=== PATIENT | female | born 1950 | race Caucasian/White ===

== ENCOUNTER 2019-07-13 06:46 | Emergency (ER) | payer MEDICARE, OTHER, SELFPAY ==
--- NOTE | ~2019-07-13 | XR_ITS ---
XR knee LT 3V DATE: 07/13/2019 07:49 INDICATION: Fall. Left knee injury and pain at patellar area of TECHNIQUE: AP, lateral, sunrise views COMPARISON: None FINDINGS: No fracture or dislocation or joint effusion. No periosteal reaction or bone destruction. S uperior pole patellar enthesopathy at quadriceps tendon insertion. There is mild loss of height of medial compartment joint space. No radiopaque intra-articular loose b aliya or chondrocalcinosis. IMPRESSION: No fracture or dislocation or joint effusion Reviewed, dictated and finalized at location A. [facility]DER [facility] [employer]
[2019-07-13 06:50] VITALS: BP 127/75; PULSE 68; RESP 18; TEMP 36.4; O2SAT 95
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
--- NOTE | 2019-07-13 07:32 | PC.NURSE ---
assuming care of pt from Gabriela PETERSON. Pt is A&Ox4. Pt laying in bed resting. Pt updated on POC. Pt has no questions at this time. Pt has call light in reach
[2019-07-13] MEDS: KETOROLAC 30 MG/ML VIAL (*BKC) IM (08:06)
== END 2019-07-13 08:42 | disposition home or self-care (01) ==
PROVIDERS: Emergency Provider Emergency Medicine
DX: S80.02XA Contusion of left knee, initial encounter (principal); F17.210 Nicotine dependence, cigarettes, uncomplicated; W19.XXXA Unspecified fall, initial encounter
CPT/HCPCS: 73562; 96372; 99283; J1885

== ENCOUNTER 2019-09-21 05:10 | Observation (INO) | payer MEDICARE, OTHER, SELFPAY ==
[2019-09-21] VITALS (12 sets, daily range): BP systolic 102–123; BP diastolic 48–76; PULSE 51–84; RESP 16–19; TEMP 36.4–36.9; O2SAT 91–100; BMI 30.9
--- NOTE | ~2019-09-21 | US_ITS ---
EXAMINATION: US right upper quadrant DATE: 09/21/2019 07:36 INDICATION: Epigastric abdominal pain. TECHNIQUE: Multiple grayscale and Doppler ultrasound images of the abdomen were obtained. COMPARISON: None FINDINGS: The visualized portions of the head and body of the pancreas are normal. The liver is april l without focal lesion. There is normal flow in main portal vein. The gallbladder is normal in size a nd contains gallstones. No gallbladder wall thickening or sonographic Styles sign. The common duct is normal and measures 4 mm. There is a 1.4 cm cyst in right kidney. IMPRESSION: 1. Cholelithiasis. No evidence of acute cholecystitis. Reviewed, dictated and finalized at location A.
--- NOTE | ~2019-09-21 | XR_ITS ---
EXAMINATION: XR chest 2V DATE: 09/21/2019 06:08 INDICATION: Midline chest pain. TECHNIQUE: Frontal and lateral views of the chest were obtained. COMPARISON: Chest 2 views 06/19/2019 FINDINGS: There is mild scarring at the lung apices. There are mild airspace opacities in right lower lung zone and left mid lung zone. No pleural effusion or pneumothorax. The heart size is normal. IMPRESSION: 1. Unchanged mild airspace opacities in right lower lung zone and left midlung zone, likely chronic l ling disease. Reviewed, dictated and finalized at location A. IMPRESSION: 1. Unchanged mild airspace opacities in right lower lung zone and left midlung zone, likely chronic lung disease.
--- NOTE | ~2019-09-21 | NM_ITS ---
EXAMINATION: NM surya stress w perfusion DATE: 09/21/2019 16:08 CDT INDICATION: Atypical chest pain TECHNIQUE: Rest images were obtained following intravenous administration of 9.6 mCi Tc99m tetrofosmi n (Myoview). The patient was infused intravenously with Lexiscan (regadenoson). Then, 30.9 mCi Tc99m tetrofosmin (Myoview) was administered intravenously, and stress images were obtained. Data was recon structed into short axis and horizontal and vertical long axis SPECT images. Gated SPECT images were also obtained. COMPARISON: No prior studies for comparison. FINDINGS: There is no definite reversible or fixed perfusion abnormality to suggest ischemia or infar ction. There is no segmental wall motion abnormality. Left ventricular ejection fraction measures 6 4%. IMPRESSION: 1. No definite ischemia or infarct. 2. Normal left ventricular ejection fraction measuring 64%. Reviewed, dictated and finalized at location A.
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
--- NOTE | 2019-09-21 05:37 | ECG_ITS ---
Measurements Intervals [place] Rate: 61 P: -6 DC: 122 QRS: 55 QRSD: 129 T: 195 QT: 437 QTc: 441 Interpretive Statements SINUS RHYTHM RIGHT BUNDLE BRANCH BLOCK T WAVE ABNORMALITY IN DIFFUSE LEADS- CONSIDER ISHEMIA BASELINE ARTIFACT- I, II, III, AVR, AVL, AVF, V1-V2 ABNORMAL ECG Electronically Signed On 09-21-2019 7:16:49 CDT by Roberto Clayton D.O.
[2019-09-21 05:41] LABS: Basophils Percent Auto 0.4 % (0.2-1.2); Eosinophils Absolute Auto 0.2 K/mm3 (0-0.3); Eosinophils Percent Auto 1.4 % (0-4.4); Hematocrit 45.6 % (37.0-47.0); Hemoglobin 14.4 g/dL (12.0-15.0); Immature Granulocyte Absolute 0.04 K/mm3 (0.00-0.031); Immature Granulocyte Percent A 0.4 % (0-0.5); Lymphocytes Absolute Auto 2.59 K/mm3 (0.9-3.2); Lymphocytes Percent Auto 23.9 % (18.3-44.2); Mean Corpuscular HGB Conc 31.6 g/dl (32-36); Mean Corpuscular Hemoglobin 27.7 pg (26-34); Mean Corpuscular Volume 87.9 fl (80-100); Mean Platelet Volume 10.4 fl (7.4-10.4); Monocytes Absolute Auto 0.9 K/mm3 (0.1-0.6); Monocytes Percent Auto 8.4 % (2.6-8.5); Neutrophils Absolute Auto 7.1 K/mm3 (1.3-6.7); Neutrophils Percent Auto 65.5 % (45.5-73.1); Platelet Count Result 223 k/mm3 (150-375); Red Blood Count 5.19 M/mm3 (4.2-5.4); Red Cell Distribution Width 14.6 % (11.5-14.5); White Blood Count 10.9 K/mm3 (4.5-10.0)
[2019-09-21 05:53] LABS: Alanine Aminotransferase 26 U/L (4-35); Albumin Level 3.3 g/dL (3.5-5.1); Alkaline Phosphatase 124 U/L (38-126); Aspartate Amino Transferase 21 U/L (14-36); Bilirubin,Total 0.6 mg/dL (0.2-1.3); Blood Urea Nitrogen 38 mg/dL (7-17); Carbon Dioxide 28 mmol/L (22-30); Chloride 106 mmol/L (98-107); Estimated CRCL calculation 45 ml/min; Estimated Glomerular Filt Rate 49; Glucose 119 mg/dL (65-105); Lipase 126 U/L (23-300); Sodium 139 mmol/L (137-145)
[2019-09-21 05:58] LABS: Add Urine Microscopic? YES; Appearance Urine Clear (Clear); Bilirubin Urine Negative (Negative); Blood Urine Negative (Negative); Color Urine Yellow (Yellow); Glucose Urine UA 3+ mg/dL (Negative); Ketones Urine Negative (Negative); Leukocyte Esterase Ur Negative LEU/UL (Negative); Nitrate Urine Negative (Negative); Protein Urine Negative (Negative); RBC Urine 0-2 /hpf (0-2); Specific Grav Ur 1.015 (1.001-1.035); Squamous Epithelial Cell Urine Rare /hpf (Few); Urobilinogen Urine Negative mg/dL (<2.0); WBC Urine 0-3 /hpf
[2019-09-21 06:05] LABS: Troponin I 0.019 ng/mL (0.000-0.034)
[2019-09-21 08:48] LABS: Troponin I 0.021 ng/mL (0.000-0.034)
--- NOTE | 2019-09-21 09:25 | ADMGEN ---
This patient, Flory Peters, was admitted to IMU Room 203-01 at 920. Patient/family oriented to hospital policies and general routines including ID bracelet, bed and alarms, visiting hours, pain management, procedures, bathroom and other care routines, personal items, smoking policy, room service/diet, and visiting hours. Valuables list has been completed. Information on how to activate the Rapid Response Team has been discussed. Patient/Family are encouraged to report perceived risks to care and to ask questions if they do not understand what they are told or what they should do.
[2019-09-21] MEDS: FAMOTIDINE 20 MG/2 ML VIAL IV PUSH (10:24)
[2019-09-21 11:47] LABS: Troponin I 0.017 ng/mL (0.000-0.034)
--- NOTE | 2019-09-21 12:31 | EST_ITS ---
Patient Info Name: Flory Peters Age: 69 years : 1950 Gender: Female Ht: 64 in Wt: 180 lbs BSA: 1.95 m2 Exam Date: 09/21/2019 2:36 PM Exam Location: [facility] Stress Patient Status: Inpatient Admit Date: 09/21/2019 Staff Ordering Physician: Dmitriy Baires MD Attending Provider: Himanshu Tirado MD Exercise Technologist: Jesse Styles RDCS, RT Exercise Physician: Dmitriy Baires MD Exam Type: CA stress surya w NM Study Info A regadenoson stress test was performed. Summary 1. Indication for the stress test, chest pain. 2. Lexiscan nuclear stress test with no evidence of ischemia on EKG portion of test. Please correlate with nuclear medicine images, reported separately. 3. No chest discomfort with stress test. Protocol: Lexiscan Stress ECG Details Stage: REST Duration (min): 1 min : 4 sec HR (bpm): 54 SBP (mmHg): 127 DBP (mmHg): 68 Stage: REST Duration (min): 3 min : 55 sec HR (bpm): 55 SBP (mmHg): 127 DBP (mmHg): 68 Stage: STAGE 1 Duration (min): 1 min : 0 sec HR (bpm): 58 SBP (mmHg): 131 DBP (mmHg): 63 Stage: RECOVERY Duration (min): 1 min : 0 sec HR (bpm): 66 SBP (mmHg): 131 DBP (mmHg): 63 Stage: RECOVERY Duration (min): 2 min : 0 sec HR (bpm): 66 SBP (mmHg): 131 DBP (mmHg): 63 Stage: RECOVERY Duration (min): 3 min : 0 sec HR (bpm): 67 SBP (mmHg): 143 DBP (mmHg): 60 Stage: RECOVERY Duration (min): 4 min : 0 sec HR (bpm): 66 SBP (mmHg): 143 DBP (mmHg): 60 Stage: RECOVERY Duration (min): 5 min : 0 sec HR (bpm): 65 SBP (mmHg): 129 DBP (mmHg): 62 Stage: RECOVERY Duration (min): 6 min : 0 sec HR (bpm): 65 SBP (mmHg): 129 DBP (mmHg): 62 Stage: RECOVERY Duration (min): 6 min : 22 sec HR (bpm): 64 SBP (mmHg): 129 DBP (mmHg): 62 Rest HR: 55 bpm Peak HR: 74 bpm Rest Sys BP: 127 mmHg Peak Sys BP: 143 mmHg Max Pred HR: 151 bpm % Max Pred HR: 49 % Target HR: 128 bpm Max RPP: 10,582 bpm*mmHg BP Response: Normal blood pressure response Termination Reason: Completed protocol Cardiac Symptoms: Dyspnea Total Time: 1 min : 0 sec Rest Martin BP: 68 mmHg Peak Martin BP: 60 mmHg Total Dose: 0.4 mg Resting ECG Normal sinus rhythm. Resting ST/T wave changes. Stress ECG No abnormal ST/T wave changes with exercise. Arrhythmias Occasional PACs. Report Signatures
[2019-09-21] MEDS: INSULIN GLARGINE (*BKC) 100 UNITS/ML 40 UNITS SUB-Q (12:32)
[2019-09-21] MEDS: ROSUVASTATIN 10 MG TABLET 20 MG PO (12:32)
[2019-09-21] MEDS: PRAMIPEXOLE 1 MG TABLET PO ×2 (12:32→16:41)
[2019-09-21] MEDS: INSULIN ASPART (*BKC) 100 UNITS/ML 30 UNITS SUB-Q (12:32)
--- NOTE | 2019-09-21 12:32 | ECHO_ITS ---
Patient Info Name: Flory Peters Age: 69 years : 1950 Gender: Female Ht: 64 in Wt: 180 lbs BSA: 1.95 m2 HR: 60 bpm BP: 122 / 48 mmHg Heart Rhythm: Sinus Rhythm Technical Quality: Good Exam Date: 09/21/2019 1:22 PM Exam Location: [facility] Pulmonary Patient Status: Inpatient Admit Date: 09/21/2019 Staff Ordering Physician: Dmitriy Baires MD Paper Sheeter: Maggi Johnson RDCS Attending Provider: Himanshu Tirado MD Referring Physician: Viry GUAJARDO; Exam Type: CA echo doppler color flow Study Info Indications R07.89 - Other chest pain Complete two-dimensional, color flow and Doppler transthoracic echocardiogram is performed. Summary 1. Left ventricular chamber dimension is normal. 2. Apical hypertrophy with spade-shaped left ventricular chamber noted, consistent with apical hypertrophic cardiomyopathy. Recommend eventual additional views to assess for possible mid-ventricular cavity gradient. 3. Left ventricular systolic function is hyperdynamic, estimated at 65-70%. 4. Mild lipomatous hypertrophy of the atrial septum. 5. Mild pulmonary hypertension, estimated pulmonary arterial systolic pressure is 46 mmHg. 6. Technically difficult study with limited views. Left Ventricle Apical hypertrophy with spade-shaped left ventricular chamber noted, consistent with apical hypertrophic cardiomyopathy. Recommend eventual additional views to assess for possible mid-ventricular cavity gradient. Left ventricular chamber dimension is normal. Left ventricular systolic function is hyperdynamic, estimated at 65-70%. The left ventricular diastolic function is indeterminate. Right Ventricle Right ventricular chamber dimension is normal. Right ventricular systolic function is normal. Left Atria Left atrial chamber dimension is mildly enlarged. Right Atria Right atrial chamber dimension is normal. Atrial Septum Mild lipomatous hypertrophy of the atrial septum. Aortic Valve The aortic valve is trileaflet. There is mild aortic valve sclerosis. There is no aortic valve stenosis. There is no aortic valve regurgitation. Pulmonic Valve The pulmonic valve is not well visualized. There is no pulmonic valve stenosis. There is trace pulmonic regurgitation. Mitral Valve The mitral valve has normal leaflets. There is no mitral valve stenosis. There is mild mitral valve regurgitation. Tricuspid Valve The tricuspid valve leaflets are not well visualized. There is no significant tricuspid valve stenosis. There is mild tricuspid valve regurgitation. Mild pulmonary hypertension, estimated pulmonary arterial systolic pressure is 46 mmHg. Pericardium/Pleural The pericardium appears normal. There is no pericardial effusion. Inferior Vena Cava Normal inferior vena cava with >50% collapse upon inspiration consistent with normal right atrial pressure, 3 mmHg. Aorta The aortic root size at the sinus of Valsalva is normal. The prox ascending aorta size is normal. Left Ventricular Outflow Tract Name Value Normal LVOT 2D LVOT Diameter 1.9 cm LVOT Doppler LVOT Peak Gradient 10 mmHg
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
--- NOTE | 2019-09-21 12:35 | PM.CNCAR ---
Assessment and Plan Assessment and plan (1) Atypical chest pain: Code(s): R07.89 - Other chest pain Status: Acute Assessment and Plan: Patient is 69-year-old white woman with history of hypertension, hyperlipidemia, diabetes mellitus, active tobacco dependence (for 40 years, currently 1/2 pack per day but previously 2 packs per day), lung cancer ( status post right-sided lobectomy approximately 2018, status post 5 rounds of radiation therapy ending 1 year ago, with negative chest CT [address] [facility]), COPD, osteoarthritis status post right hip replacement (several years ago), seizure disorder, anxiety, who was seen in cardiac consultation for chief complaint of chest pain. - chest pain is atypical (sharp, stabbing, lower central chest and epigastric, radiating to right lateral chest, worse after eating sausages and laying down). Chest pain currently resolved. - Serial troponin I negative for injury. - EKG without evidence of acute injury. - Given her multiple cardiac risk factors including active tobacco dependence and diabetes mellitus, will proceed with Lexiscan nuclear stress test to evaluate for ischemia. - obtain echo to evaluate cardiac structure and function. - she received aspirin earlier in her presentation, and will continue pending stress test results. - per her report, she needs a new senior information security analyst as her prior senior information security analyst at [employer] is retiring. - tobacco cessation strongly encouraged. (2) Hypertension: Code(s): I10 - Essential (primary) hypertension Status: Chronic Assessment and Plan: - Blood pressure well controlled this admission. - continue to monitor - Anticipate resuming her triamterene hydrochlorothiazide. (3) Hyperlipidemia: Code(s): E78.5 - Hyperlipidemia, unspecified Status: Chronic Assessment and Plan: -Continue rosuvastatin as per outpatient regimen. -obtain fasting lipid panel. She reports good recent control of her cholesterol as an outpatient. (4) Cholelithiasis: Code(s): K80.20 - Calculus of gallbladder without cholecystitis without obstruction Status: Acute Assessment and Plan: - Right upper quadrant ultrasound with evidence of cholelithiasis but without cholecystitis. - She had atypical lower central chest and epigastric discomfort with radiation to the right lateral chest after eating sausages. - Management as per primary service. (5) Diabetes: Code(s): E11.9 - Type 2 diabetes mellitus without complications Status: Chronic Assessment and Plan: - she has a history of poorly controlled diabetes mellitus. - management as per primary service. (6) COPD (chronic obstructive pulmonary disease): Code(s): J44.9 - Chronic obstructive pulmonary disease, unspecified Status: Chronic Assessment and Plan: - Smoking cessation strongly recommended. - management as per primary service. History of Present Illness History of Present Illness Consult date/time: 09/21/19 12:35 Patient is 69-year-old white woman with history of hypertension, hyperlipidemia, diabetes mellitus, active tobacco dependence (for 40 years, currently 1/2 pack per day but previously 2 packs per day), lung cancer ( status post right-sided lobectomy approximately 2018, status post 5 rounds of radiation therapy ending 1 year ago, with negative chest CT [address] [facility]), COPD, osteoarthritis status post right hip replacement (several years ago), seizure disorder, anxiety, who was seen in cardiac consultation for chief complaint of chest pain. Patient reports intermittent chest pain since her lung cancer surgery with right-sided lobectomy in 2018. She reports approximately every 6 month she will have an episode of exertional chest pain which would extend to her left arm. She reports she has not had such chest pain for at least 6 months but then on the evening of the day of presentation she made pigs in the joni
[2019-09-21 13:16] LABS: Glucose Point of Care 305 (65-105)
[2019-09-21 14:41] LABS: Glucose Point of Care 297 (65-105)
[2019-09-21 14:41] LABS: Glucose Point of Care 153 (65-105)
[2019-09-21] MEDS: ALPRAZOLAM 0.5 MG TABLET 2 MG PO (16:41)
[2019-09-21] MEDS: METOPROLOL SUCCINATE EXT REL 25 MG TABCR PO (17:21)
[2019-09-21 18:29] LABS: Glucose Point of Care 97 (65-105)
--- NOTE | 2019-09-21 18:34 | PM.DS ---
DS: Diagnosis Admitting Diagnosis Admitting Diagnosis: Other chest pain Discharge Diagnosis (1) Atypical chest pain: Code(s): R07.89 - Other chest pain Status: Acute Assessment and Plan: Chest pain atypical infected occurs at rest but she does have risk factors angry with Cardiology in proceeding with nuclear stress test. Which was negative for ischemia. Echo revealed possible hypertrophic cardiomyopathy and will follow-up with cardiology on beta-ilana Toprol XL 25 daily Could very well be related to symptomatic cholelithiasis. (2) Hypertension: Code(s): I10 - Essential (primary) hypertension Status: Chronic Assessment and Plan: Well controlled and beta-ilana will be substituted for her diuretic (3) Diabetes: Code(s): E11.9 - Type 2 diabetes mellitus without complications Status: Chronic Assessment and Plan: FBS 119 this morning but over 200 before lunch. Will give her 2 surgery usual Lantus dose and she did not get it this morning and continue short-acting insulin a.c. along with sliding scale She does relate that a hemoglobin A1c was greater than 11 some 4 months ago No change in her diabetic insulin regime here and will follow the same at home (4) COPD (chronic obstructive pulmonary disease): Code(s): J44.9 - Chronic obstructive pulmonary disease, unspecified Status: Chronic Assessment and Plan: Not active problem. Does continue to smoke (5) Cholelithiasis: Code(s): K80.20 - Calculus of gallbladder without cholecystitis without obstruction Status: Acute Assessment and Plan: Sono today revealed the stones with no gallbladder wall thickening or rosita colic fluid. There have been no previous episodes so not unusual to not find any gallbladder wall thickening and patient encouraged to follow-up with primary care for probable surgical referral DS: Summary Hospital Course Hospital Course: 69-year-old white female diabetic with hypertension since is smokes admitted with chest pressure was radiating to her scapula about 4 hours after eating some fried foods. Troponins were negative and EKG had chronic nonspecific ST T wave changes with incomplete right bundle branch block. Seen by Cardiology and Lexiscan showed no evidence ischemia with normal ejection fraction.. Echo revealed thickened myocardium and possible hypertrophic cardiomyopathy so patient was placed on metoprolol GB sonogram showed cholelithiasis without evidence of cholecystitis and patient was encouraged to follow up with her primary and possible have surgical referral Time Spent with Patient Time attestation: Total time spent providing and/or coordinating discharge services: 35 minutes Exam Narrative: Exam Narrative: Condition on discharge Blood pressure 124/52 pulse 72 and regular Lungs clear CV regular rate rhythm no murmurs or gallops Abdomen is soft minimal discomfort right upper quadrant Extremities without edema good distal pulses Neuro alert pleasant cooperative no focal deficits DS: Data Data Completed and Pending Labs on day of discharge: Labs from last 24 hours 09/21/19 09/21/19 09/21/19 16:10 12:38 11:32 WBC RBC Hgb Hct MCV MCH MCHC RDW Plt Count MPV Immature Gran % (Auto) Neut % (Auto) Lymph % (Auto) [place] % (Auto) Eos % (Auto) Baso % (Auto) Lymph # (Auto) [place] # (Auto) Eos # (Auto) Baso # (Auto) Abs Immat Gran (auto) Absolute Neuts (auto) Absolute Nucleated RBC Nucleated RBC % Sodium Potassium Chloride Carbon Dioxide BUN Creatinine Estim Creat Clear Calc Estimated GFR Glucose POC Capillary Glucose 97 305 H 297 H Calcium Total Bilirubin AST ALT Alkaline Phosphatase Troponin I Total Protein Albumin Lipase Urine Color Urine Appearance Urine pH Ur Specific [place] Urine Protein
== END 2019-09-21 18:30 | disposition home or self-care (01) ==
LOC: ANHED 08:29 → ANHIMU 08:59
PROVIDERS: Emergency Medicine; Admitting Provider Internal Medicine; Emergency Provider Internal Medicine; Visit Provider Internal Medicine
DX: R07.89 Other chest pain (principal); I10 Essential (primary) hypertension; E11.9 Type 2 diabetes mellitus without complications; J44.9 Chronic obstructive pulmonary disease, unspecified; K80.20 Calculus of gallbladder without cholecystitis without obstruction; E78.5 Hyperlipidemia, unspecified; F17.210 Nicotine dependence, cigarettes, uncomplicated; G40.909 Epilepsy, unspecified, not intractable, without status epilepticus; F41.9 Anxiety disorder, unspecified; Z79.4 Long term (current) use of insulin; Z79.899 Other long term (current) drug therapy; Z85.118 Personal history of other malignant neoplasm of bronchus and lung; Z90.2 Acquired absence of lung [part of]; Z92.3 Personal history of irradiation; Z96.641 Presence of right artificial hip joint
CPT/HCPCS: 36415; 71046; 76705; 78452; 80053; 81001; 83690; 84484; 85025; 93005; 93017; 93306; 96374; 99285; A9270; A9502; G0378; J1815; J2785

== ENCOUNTER 2019-11-09 11:33 | Emergency (ER) | payer MEDICARE, OTHER, SELFPAY ==
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
[2019-11-09 12:04] VITALS: BP 121/73; PULSE 64; RESP 16; TEMP 37.1; O2SAT 96
== END 2019-11-09 12:27 | disposition home or self-care (01) ==
PROVIDERS: Emergency Provider Nurse Practitioner; PCP Internal Medicine Endocrinology, Diabetes & Metabolism
DX: H00.015 Hordeolum externum left lower eyelid (principal); J44.9 Chronic obstructive pulmonary disease, unspecified; F41.9 Anxiety disorder, unspecified; E78.5 Hyperlipidemia, unspecified; I10 Essential (primary) hypertension; E11.9 Type 2 diabetes mellitus without complications; I42.9 Cardiomyopathy, unspecified; M16.11 Unilateral primary osteoarthritis, right hip; Z85.118 Personal history of other malignant neoplasm of bronchus and lung; Z90.2 Acquired absence of lung [part of]; F17.210 Nicotine dependence, cigarettes, uncomplicated; Z79.4 Long term (current) use of insulin
CPT/HCPCS: 99213; G0463

== ENCOUNTER 2019-11-14 01:32 | Emergency (ER) | payer MEDICARE, OTHER, SELFPAY ==
--- NOTE | ~2019-11-14 | XR_ITS ---
EXAMINATION: XR chest 1V portable DATE: 11/14/2019 03:53 INDICATION: Heart disease. TECHNIQUE: A single frontal view of the chest was obtained. COMPARISON: Chest 2 views 09/21/2019 FINDINGS: Again seen is mild scarring at right lower lung zone and left midlung zone. No pleural effu verito or pneumothorax. The heart size is normal. There is a prominent left paracardial fat pad. IMPRESSION: 1. Mild scarring in right lower lung zone and left midlung zone. Reviewed, dictated and finalized at location A.
[2019-11-14 01:32] VITALS: BP 161/99; PULSE 87; RESP 22; TEMP 36.7; O2SAT 94
[2019-11-14 02:34] VITALS: BP 147/61; PULSE 88; RESP 19; O2SAT 93
--- NOTE | 2019-11-14 03:42 | ECG_ITS ---
Measurements Intervals Lane Rate: 71 P: 59 MO: 139 QRS: 55 QRSD: 132 T: -49 QT: 385 QTc: 418 Interpretive Statements SINUS RHYTHM ATRIAL TRIPLET RIGHT BUNDLE BRANCH BLOCK VOLTAGE CRITERIA FOR LVH T WAVE ABNORMALITY IN ANTEROLATERAL LEADS- CONSIDER ISCHEMIA BASELINE ARTIFACT- AVF ABNORMAL ECG Electronically Signed On 11-14-2019 6:47:45 CDT by Roberto Clayton D.O.
[2019-11-14 03:59] LABS: Basophils Percent Auto 0.3 % (0.2-1.2); Eosinophils Absolute Auto 0.1 K/mm3 (0-0.3); Eosinophils Percent Auto 1.4 % (0-4.4); Hematocrit 46.9 % (37.0-47.0); Hemoglobin 14.9 g/dL (12.0-15.0); Immature Granulocyte Absolute 0.02 K/mm3 (0.00-0.031); Immature Granulocyte Percent A 0.2 % (0-0.5); Lymphocytes Absolute Auto 2.88 K/mm3 (0.9-3.2); Lymphocytes Percent Auto 31.1 % (18.3-44.2); Mean Corpuscular HGB Conc 31.8 g/dl (32-36); Mean Corpuscular Hemoglobin 28.4 pg (26-34); Mean Corpuscular Volume 89.5 fl (80-100); Monocytes Absolute Auto 0.6 K/mm3 (0.1-0.6); Monocytes Percent Auto 6.5 % (2.6-8.5); Neutrophils Absolute Auto 5.6 K/mm3 (1.3-6.7); Neutrophils Percent Auto 60.5 % (45.5-73.1); Platelet Count Result 198 k/mm3 (150-375); Red Blood Count 5.24 M/mm3 (4.2-5.4); Red Cell Distribution Width 14.6 % (11.5-14.5); White Blood Count 9.3 K/mm3 (4.5-10.0)
[2019-11-14 04:04] LABS: Alveolar/Arterial O2 Gradient 33.7 mmHg; Base Excess ABG 3.5 mEq/l (+/-2.0); Carboxyhemoglobin 4.2 % THb (0-2.0); Fractional Inspired Oxygen 21 %; HCO3 ABG 29.3 mEq/l (22.0-26.0); Methemoglobin ABG 0.3 %THb (0-1.5); Modified Allen's Test Pass; Oxygen Content ABG 18.4 %vol (16.0-22.0); Oxygen Saturation ABG 89.7 % (95.0-100.0); Oxyhemoglobin 85.5 % THb (90.0-100.0); PCO2 ABG 48.6 mmHg (35.0-45.0); PO2 ABG 57.8 mmHg (80.0-100.0); PO2 FiO2 Ratio Arterial Blood 2.75 %; Site Drawn LEFT RADIAL; Total Hemoglobin 15.3 g/dL (12.0-18.0); pH ABG 7.398 (7.350-7.450)
[2019-11-14 04:05] LABS: Device ROOM AIR
[2019-11-14 04:08] LABS: INR 0.9; Prothrombin Time 11.9 Seconds (11.1-14.7)
[2019-11-14 04:09] VITALS: BP 148/78; PULSE 92; RESP 19; O2SAT 92
[2019-11-14 04:09] LABS: Partial Thromboplastin Time 24.3 SECONDS (22.3-36.8)
[2019-11-14 04:10] LABS: Alanine Aminotransferase 23 U/L (4-35); Albumin Level 3.3 g/dL (3.5-5.1); Alkaline Phosphatase 120 U/L (38-126); Aspartate Amino Transferase 26 U/L (14-36); Bilirubin,Total 0.5 mg/dL (0.2-1.3); Blood Urea Nitrogen 34 mg/dL (7-17); Calcium 9.4 mg/dL (8.4-10.2); Carbon Dioxide 33 mmol/L (22-30); Chloride 101 mmol/L (98-107); Creatine Kinase 83 U/L (30-135); Estimated CRCL calculation 45 ml/min; Estimated Glomerular Filt Rate 49; Glucose 203 mg/dL (65-105); Potassium 4.2 mmol/L (3.4-5.0); Sodium 137 mmol/L (137-145)
--- NOTE | 2019-11-14 04:10 | PC.NURSE ---
Assumed care of pt at this time. report from NICHOLAS Child
[2019-11-14 04:19] LABS: NT Pro B Type Natriuretic Pept 1030 PG/ML (5-100)
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
[2019-11-14 05:10] VITALS: BP 133/89; PULSE 91; RESP 20; O2SAT 92
== END 2019-11-14 05:10 | disposition home or self-care (01) ==
PROVIDERS: Emergency Provider General Practice; PCP Internal Medicine Endocrinology, Diabetes & Metabolism
DX: R25.2 Cramp and spasm (principal); J44.9 Chronic obstructive pulmonary disease, unspecified; F17.210 Nicotine dependence, cigarettes, uncomplicated; F41.9 Anxiety disorder, unspecified; E11.9 Type 2 diabetes mellitus without complications; Z79.4 Long term (current) use of insulin; E78.5 Hyperlipidemia, unspecified; I10 Essential (primary) hypertension; Z85.118 Personal history of other malignant neoplasm of bronchus and lung; M16.11 Unilateral primary osteoarthritis, right hip; Z90.2 Acquired absence of lung [part of]; Z96.641 Presence of right artificial hip joint; I45.10 Unspecified right bundle-branch block; R94.31 Abnormal electrocardiogram [ECG] [EKG]
CPT/HCPCS: 36415; 36600; 71045; 80053; 82375; 82550; 82805; 83050; 83735; 83880; 85025; 85610; 85730; 93005; 99283

== ENCOUNTER 2019-12-17 16:16 | Emergency (ER) | payer MEDICARE, OTHER, SELFPAY ==
[2019-12-17 16:29] VITALS: BP 155/87; PULSE 99; RESP 16; TEMP 37.3; O2SAT 99
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
== END 2019-12-17 16:55 | disposition home or self-care (01) ==
PROVIDERS: Emergency Provider Nurse Practitioner; PCP Internal Medicine Endocrinology, Diabetes & Metabolism
DX: M25.562 Pain in left knee (principal); G89.29 Other chronic pain; F17.210 Nicotine dependence, cigarettes, uncomplicated; E78.00 Pure hypercholesterolemia, unspecified; I10 Essential (primary) hypertension; J44.9 Chronic obstructive pulmonary disease, unspecified; M19.90 Unspecified osteoarthritis, unspecified site; Z96.641 Presence of right artificial hip joint; E11.9 Type 2 diabetes mellitus without complications; Z79.4 Long term (current) use of insulin; F41.9 Anxiety disorder, unspecified; Z85.118 Personal history of other malignant neoplasm of bronchus and lung; Z92.3 Personal history of irradiation
CPT/HCPCS: 99213; G0463

== ENCOUNTER 2020-01-07 16:09 | Emergency (ER) | payer MEDICARE, OTHER, SELFPAY ==
[2020-01-07 16:12] VITALS: BP 146/94; PULSE 93; RESP 20; TEMP 36.3; O2SAT 95
[2020-01-07 16:29] LABS: Basophils Percent Auto 0.2 % (0.2-1.2); Eosinophils Absolute Auto 0.1 K/mm3 (0-0.3); Hematocrit 45.4 % (37.0-47.0); Hemoglobin 14.7 g/dL (12.0-15.0); Immature Granulocyte Absolute 0.02 K/mm3 (0.00-0.031); Immature Granulocyte Percent A 0.2 % (0-0.5); Lymphocytes Absolute Auto 2.43 K/mm3 (0.9-3.2); Lymphocytes Percent Auto 29.5 % (18.3-44.2); Mean Corpuscular HGB Conc 32.4 g/dl (32-36); Mean Corpuscular Hemoglobin 28.4 pg (26-34); Mean Corpuscular Volume 87.8 fl (80-100); Mean Platelet Volume 10.3 fl (7.4-10.4); Monocytes Absolute Auto 0.5 K/mm3 (0.1-0.6); Monocytes Percent Auto 5.6 % (2.6-8.5); Neutrophils Absolute Auto 5.2 K/mm3 (1.3-6.7); Neutrophils Percent Auto 63.5 % (45.5-73.1); Platelet Count Result 203 k/mm3 (150-375); Red Blood Count 5.17 M/mm3 (4.2-5.4); Red Cell Distribution Width 14.1 % (11.5-14.5); White Blood Count 8.2 K/mm3 (4.5-10.0)
[2020-01-07 16:40] LABS: Alanine Aminotransferase 24 U/L (4-35); Albumin Level 3.4 g/dL (3.5-5.1); Alkaline Phosphatase 109 U/L (38-126); Bilirubin,Total 0.6 mg/dL (0.2-1.3); Blood Urea Nitrogen 29 mg/dL (7-17); Carbon Dioxide 28 mmol/L (22-30); Chloride 102 mmol/L (98-107); Estimated CRCL calculation 45 ml/min; Estimated Glomerular Filt Rate 49; Glucose 388 mg/dL (65-105); Magnesium 1.6 mg/dL (1.6-2.3); Sodium 136 mmol/L (137-145)
[2020-01-07 16:48] LABS: Aspartate Amino Transferase < 3 U/L (14-36)
[2020-01-07 17:49] LABS: Add Urine Microscopic? YES; Appearance Urine Clear (Clear); Bilirubin Urine Negative (Negative); Blood Urine Negative (Negative); Color Urine Straw (Yellow); Glucose Urine UA 3+ mg/dL (Negative); Ketones Urine Negative (Negative); Leukocyte Esterase Ur Trace LEU/UL (Negative); Mucus Urine Rare /lpf; Nitrate Urine Negative (Negative); Protein Urine Negative (Negative); RBC Urine 0-2 /hpf (0-2); Squamous Epithelial Cell Urine Moderate /hpf (Few); Urobilinogen Urine Negative mg/dL (<2.0); WBC Urine 0-3 /hpf
[2020-01-07 17:57] VITALS: BP 142/68; PULSE 73; RESP 18; O2SAT 94
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
[2020-01-07 17:58] VITALS: RESP 94
[2020-01-07] MEDS: INSULIN HUMAN REGULAR (*BKC) 100 UNITS/ML 6 UNITS IV PUSH (18:17)
[2020-01-07] MEDS: SODIUM CHLORIDE 0.9% IV 1,000 ML 999 ML IV CONT (18:19)
[2020-01-07 18:53] LABS: Glucose Point of Care 388 (65-105)
[2020-01-07 18:53] LABS: Glucose Point of Care 290 (65-105)
--- NOTE | 2020-01-07 19:28 | PC.NURSE ---
assumed care of pt at this time. received report from ras escalona.
[2020-01-07 20:33] VITALS: BP 134/75; PULSE 79; RESP 16; O2SAT 95
[2020-01-08 00:37] LABS: Beta-Hydroxybutyrate/Acetoacetate 0.09 mmol/L (0.02-0.27)
== END 2020-01-07 20:33 | disposition home or self-care (01) ==
PROVIDERS: Emergency Provider Emergency Medicine; PCP Radiology Diagnostic Radiology
DX: E11.65 Type 2 diabetes mellitus with hyperglycemia (principal); Z79.4 Long term (current) use of insulin; F41.9 Anxiety disorder, unspecified; J44.9 Chronic obstructive pulmonary disease, unspecified; E78.5 Hyperlipidemia, unspecified; I10 Essential (primary) hypertension; M16.11 Unilateral primary osteoarthritis, right hip; Z85.118 Personal history of other malignant neoplasm of bronchus and lung; Z90.2 Acquired absence of lung [part of]; Z96.641 Presence of right artificial hip joint; F17.210 Nicotine dependence, cigarettes, uncomplicated; Z92.3 Personal history of irradiation
CPT/HCPCS: 36415; 80053; 81001; 82010; 82948; 83735; 84100; 85025; 96361; 96374; 99284; J1815; J7030

== ENCOUNTER 2020-02-06 09:56 | Observation (INO) | payer MEDICARE, OTHER, SELFPAY ==
[2020-02-06] VITALS (8 sets, daily range): BP systolic 136–155; BP diastolic 65–93; PULSE 78–92; RESP 16–20; TEMP 36.5–36.7; O2SAT 91–99; BMI 32.3
--- NOTE | ~2020-02-06 | XR_ITS ---
EXAMINATION: XR chest 1V portable DATE: 02/06/2020 11:44 INDICATION: Shortness of breath and cough TECHNIQUE: frontal view of the chest was obtained. COMPARISON: Chest radiograph dated 11/14/2019 FINDINGS: Chronic linear scarring in the right lower lung zone and the left midlung zone. No new opacities, pul monary edema, pleural effusion or pneumothorax. Heart size is normal with prominent left paracardial fat pad. IMPRESSION: 1. Unchanged chronic scarring in the left mid and right lower lung zones. Reviewed, dictated and finalized at location A.
--- NOTE | 2020-02-06 10:38 | ECG_ITS ---
Measurements Intervals [place] Rate: 80 P: 37 [place]: 132 QRS: 69 QRSD: 132 T: -16 QT: 362 QTc: 419 Interpretive Statements SINUS RHYTHM ATRIAL COUPLETS AND FREQUENT ATRIAL PREMATURE COMPLEXES RIGHT BUNDLE BRANCH BLOCK T WAVE ABNORMALITY IN ANTEROLATERAL LEADS- CONSIDER ISCHEMIA BASELINE ARTIFACT- I, II, III, AVR, AVL, AVF ABNORMAL ECG Electronically Signed On 02-06-2020 13:37:11 CDT by Roberto Clayton D.O.
[2020-02-06 10:54] LABS: Basophils Percent Auto 0.4 % (0.2-1.2); Eosinophils Absolute Auto 0.1 K/mm3 (0-0.3); Eosinophils Percent Auto 0.8 % (0-4.4); Hematocrit 47.6 % (37.0-47.0); Hemoglobin 15.5 g/dL (12.0-15.0); Immature Granulocyte Absolute 0.03 K/mm3 (0.00-0.031); Immature Granulocyte Percent A 0.4 % (0-0.5); Lymphocytes Absolute Auto 1.86 K/mm3 (0.9-3.2); Lymphocytes Percent Auto 25.8 % (18.3-44.2); Mean Corpuscular HGB Conc 32.6 g/dl (32-36); Mean Corpuscular Hemoglobin 28.5 pg (26-34); Mean Corpuscular Volume 87.5 fl (80-100); Mean Platelet Volume 10.3 fl (7.4-10.4); Monocytes Absolute Auto 0.4 K/mm3 (0.1-0.6); Monocytes Percent Auto 5.8 % (2.6-8.5); Neutrophils Absolute Auto 4.8 K/mm3 (1.3-6.7); Neutrophils Percent Auto 66.8 % (45.5-73.1); Platelet Count Result 220 k/mm3 (150-375); Red Blood Count 5.44 M/mm3 (4.2-5.4); Red Cell Distribution Width 14.5 % (11.5-14.5); White Blood Count 7.2 K/mm3 (4.5-10.0)
[2020-02-06 11:07] LABS: Anion Gap 6 mmol/L (8-16); Blood Urea Nitrogen 31 mg/dL (7-17); Calcium 9.6 mg/dL (8.4-10.2); Carbon Dioxide 29 mmol/L (22-30); Chloride 103 mmol/L (98-107); Estimated CRCL calculation 55 ml/min; Estimated Glomerular Filt Rate > 60; Glucose 330 mg/dL (65-105); Potassium 4.4 mmol/L (3.4-5.0); Sodium 138 mmol/L (137-145)
[2020-02-06] MEDS: methylPREDNISolone SOD SUCC 125 MG VIAL IV PUSH (12:34)
--- NOTE | 2020-02-06 12:39 | PC.NURSE ---
BS 267
[2020-02-06 12:41] LABS: Glucose Point of Care 267 (65-105)
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
[2020-02-06] MEDS: INSULIN HUMAN REGULAR (*BKC) 100 UNITS/ML 6 UNITS SUB-Q (12:56)
[2020-02-06] MEDS: ALBUTEROL SULFATE (*SP) AEROSOL 1 PUFF 2 PUFF INHALATION (13:20)
[2020-02-06 15:46] LABS: Glucose Point of Care 411 (65-105)
[2020-02-06 16:04] LABS: Glucose Point of Care 487 (65-105)
--- NOTE | 2020-02-06 16:16 | ADMGEN ---
This patient, Flory Peters, was admitted to [facility] Surg Room 327-01. Patient/family oriented to hospital policies and general routines including ID bracelet, bed and alarms, visiting hours, pain management, procedures, bathroom and other care routines, personal items, smoking policy, room service/diet, and visiting hours. Valuables list has been completed. Information on how to activate the Rapid Response Team has been discussed. Patient/Family are encouraged to report perceived risks to care and to ask questions if they do not understand what they are told or what they should do.
[2020-02-06] MEDS: INSULIN ASPART (*BKC) 100 UNITS/ML 12 UNITS SUB-Q ×2 (16:36→23:08)
[2020-02-06 17:51] LABS: Alanine Aminotransferase 34 U/L (4-35); Albumin Level 3.9 g/dL (3.5-5.1); Alkaline Phosphatase 135 U/L (38-126); Aspartate Amino Transferase 29 U/L (14-36); Bilirubin,Total 0.5 mg/dL (0.2-1.3); Hemoglobin A1C 12.9 % (<5.7)
--- NOTE | 2020-02-06 19:00 | PM.IMHP ---
H&P: HPI History of Present Illness Date/Time: 02/06/20 19:00 Chief complaint: Shortness of breath. Narrative: Flory Peters is a 69-year-old female smoker with COPD, lung cancer, insulin-dependent diabetes, hyperlipidemia, anxiety who presented to the emergency department earlier today via EMS from home for evaluation of shortness of breath. 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 However over the last couple of weeks she has had progressive dyspnea on lesser and lesser exertion with sinus congestion, rhinorrhea, cough productive of white phlegm, and severe coughing jags to the point where she has post-tussive emesis. She has been using her rescue inhaler 2 times a day with lesser and lesser benefit. She has not had fever, chills, chest pain, pleuritic pain, or palpitations. Her sense of smell is decreased due to sinus congestion but she denies dysgeusia. Her appetite has been okay and she has not had nausea or vomiting except for occasional posttussive emesis. No orthopnea, PND, or lower extremity edema. She denies recent travel and sick contacts. Review of Systems Review of Systems: Narrative: Twelve systems were reviewed with pertinent positives and negatives as per HPI. No headache or neck ache. She denies chest pain. No dysuria. She admits that she does not check her glucose at home. She does have polydipsia and polyuria with hyperglycemia but denies blurry vision. She was seen by her eye doctor several weeks ago and has a new I prescription but she denies diabetic retinopathy. She does have neuropathy in her legs feet and hands. No nephropathy. Except as documented, all other systems were reviewed and are negative. [facility] Past Medical History Medical History (Updated 02/06/20 @ 23:27 by Eliana Fairbanks PA-C) Anxiety Cholelithiasis Chronic kidney disease, stage 3 History of echocardiogram (~09/21/19) 1. Left ventricular chamber dimension is normal. 2. Apical hypertrophy with spade-shaped left ventricular chamber noted, consistent with apical hypertrophic cardiomyopathy. 3. Left ventricular systolic function is hyperdynamic, estimated at 65-70%. 4. Mild lipomatous hypertrophy of atrial septum. 5. Mild pulmonary hypertension, estimated pulmonary arterial systolic pressure 46 mmHg. 6. Technically difficult study with limited views. Hyperlipidemia Hypertension Insulin dependent type 2 diabetes mellitus Hemoglobin was 14% in June 2019. Lung cancer Status post partial lobectomy and radiation. Normal nuclear stress test (~09/21/19) Osteoarthritis Restless leg syndrome Tobacco dependence Urinary incontinence Surgical History Surgical History (Updated 02/06/20 @ 23:27 by Eliana Fairbanks PA-C) History of appendectomy History of bilateral carpal tunnel release History of elbow surgery Left elbow surgery for what sounds like ulnar nerve transposition. History of partial hysterectomy History of total right hip arthroplasty (~12/01/16) History of tubal ligation Status post partial lobectomy of lung (~04/21/16) Resection of lung cancer from right lung. Family History Family History Sibling Acute myocardial infarction Father Lung cancer Mother No problems noted. Social History Social History (Updated 02/06/20 @ 23:30 by Eliana Fairbanks PA-C) Social History: Flory lives in [place] with her . They had 2 sons, 1 which was killed in 1988. She is retired from [email or web address], working with [email or web address]. She began smoking at the age of 17, typically smoking about half to 1 pack of cigarettes per day. She has quit off and on over the years but continues to go back to smoking , due to stress in her marriage. She designates her son Lauro Downing as her surrogate decision maker. She does not think that
[2020-02-06 19:06] LABS: Glucose Point of Care 461 (65-105)
[2020-02-06] MEDS: ALPRAZolam 0.5 MG TABLET 2 MG PO (20:02)
[2020-02-06] MEDS: INSULIN ASPART (*BKC) 100 UNITS/ML 30 UNITS SUB-Q (20:03)
[2020-02-06] MEDS: PRAMIPEXOLE 1 MG TABLET PO (20:03)
[2020-02-06 22:04] LABS: Glucose Point of Care > 500 (65-105)
[2020-02-06] MEDS: INSULIN GLARGINE (*BKC) 100 UNITS/ML 60 UNITS SUB-Q (23:08)
[2020-02-07] VITALS (11 sets, daily range): BP systolic 112–148; BP diastolic 38–69; PULSE 66–93; RESP 16–20; TEMP 36.3–36.7; O2SAT 87–99
[2020-02-07] MEDS: ALBUTEROL SULFATE (*SP) AEROSOL 1 PUFF 4 PUFF INHALATION ×3 (01:57→14:46)
[2020-02-07] MEDS: INSULIN ASPART (*BKC) 100 UNITS/ML SUB-Q ×3 (02:42→12:48)
[2020-02-07 02:52] LABS: Glucose Point of Care 334 (65-105)
[2020-02-07 06:56] LABS: Glucose Point of Care 274 (65-105)
[2020-02-07 07:18] LABS: Hematocrit 45.7 % (37.0-47.0); Hemoglobin 14.9 g/dL (12.0-15.0); Mean Corpuscular HGB Conc 32.6 g/dl (32-36); Mean Corpuscular Hemoglobin 28.4 pg (26-34); Platelet Count Result 254 k/mm3 (150-375); Red Blood Count 5.25 M/mm3 (4.2-5.4); Red Cell Distribution Width 13.8 % (11.5-14.5); White Blood Count 10.7 K/mm3 (4.5-10.0)
[2020-02-07 07:40] LABS: Anion Gap 6 mmol/L (8-16); Blood Urea Nitrogen 34 mg/dL (7-17); Calcium 8.5 mg/dL (8.4-10.2); Carbon Dioxide 29 mmol/L (22-30); Chloride 99 mmol/L (98-107); Estimated CRCL calculation 58 ml/min; Estimated Glomerular Filt Rate > 60; Glucose 296 mg/dL (65-105); Magnesium 1.8 mg/dL (1.6-2.3); Potassium 4.3 mmol/L (3.4-5.0); Sodium 134 mmol/L (137-145)
[2020-02-07] MEDS: ALPRAZolam 0.5 MG TABLET 2 MG PO (09:16)
[2020-02-07] MEDS: ENOXAPARIN 40 MG/0.4 ML SYRINGE SUB-Q (09:17)
[2020-02-07] MEDS: ROSUVASTATIN 10 MG TABLET 20 MG PO (09:17)
[2020-02-07] MEDS: AZITHROMYCIN 250 MG TABLET 500 MG PO (09:17)
[2020-02-07] MEDS: METOPROLOL SUCCINATE EXT REL 25 MG TABCR PO (09:17)
[2020-02-07] MEDS: guaiFENesin 12 HR 600 MG TABCR PO ×2 (09:18→21:02)
[2020-02-07] MEDS: INSULIN ASPART (*BKC) 100 UNITS/ML 30 UNITS SUB-Q ×2 (09:18→12:48)
[2020-02-07] MEDS: PRAMIPEXOLE 1 MG TABLET PO ×3 (09:18→17:30)
[2020-02-07 12:44] LABS: Glucose Point of Care 289 (65-105)
[2020-02-07 17:27] LABS: Glucose Point of Care 227 (65-105)
--- NOTE | 2020-02-07 17:29 | P.PNIM_ITS ---
Progress Note: A&P Assessment and Plan (1) COPD exacerbation: Code(s): J44.1 - Chronic obstructive pulmonary disease with (acute) exacerbation Status: Acute Assessment and Plan: * Precipitated by upper respiratory infection, rule out COVID-19. * Inhaler and azithromycin no steroids as her glucose goes up * Cornet and Mucinex to help mobilize secretions. * Schedule albuterol and tiotropium MDI. * May need home oxygen evaluation before discharge. (2) Insulin dependent type 2 diabetes mellitus: Code(s): E11.9 - Type 2 diabetes mellitus without complications; Z79.4 - termite control representative (current) use of insulin Status: Acute Assessment and Plan: * Hemoglobin A1c of 12.9% today. * * Continue basal and mealtime insulin. * Initiate sliding scale insulin, Accu-Cheks, and hypoglycemic protocol. (3) Hypertension: Code(s): I10 - Essential (primary) hypertension Status: Chronic Assessment and Plan: * Blood pressures were reviewed and they have been running in the 140s to 160 systolic. * Continue antihypertensives and monitor daily. (4) Hyperlipidemia: Code(s): E78.5 - Hyperlipidemia, unspecified Status: Chronic Assessment and Plan: * Continue statin; LFTs within normal limits. (5) Restless leg syndrome: Code(s): G25.81 - Restless legs syndrome Status: Acute Assessment and Plan: * Continue pramipexole. (6) Tobacco dependence: Code(s): F17.200 - Nicotine dependence, unspecified, uncomplicated Status: Acute Assessment and Plan: * Smoking cessation discused (7) Chronic kidney disease, stage 3: Code(s): N18.3 - Chronic kidney disease, stage 3 (moderate) Status: Acute Assessment and Plan: * Creatinine is stable Subjective Date/time seen: 02/07/20 17:29 Interval history: Lorraine is a 69-year-old female smoker with COPD, lung cancer, insulin-dependent diabetes, hyperlipidemia, anxiety who presented to the emergency department earlier today via EMS from home for evaluation of shortness of breath. Admitted for COPd excerbation, awaiting covid test Review of Systems Respiratory: Respiratory: Reports cough, Reports dyspnea and Reports wheezing Exam Narrative: Exam Narrative: General: Large lady good spirits HEENT: She is wearing glasses. Neck: Supple. No JVD. Respiratory: mild cough Mild wheezes in lungs Cardiovascular: Regular rate and rhythm with S1-S2. Gastrointestinal: Abdomen is soft, nontender, and nondistended with positive bowel sounds. Skin: Warm and dry. No rash or lesions on limited exam. Neurological: Alert. No gross focal deficits to casual conversation. Psychiatric: Pleasant and cooperative with normal mood and affect. Judgment and insight intact. Objective Data Vital Signs Vital Signs: Vital Signs - 24 hr 02/06/20 20:00 02/06/20 20:56 02/07/20 00:00 Temperature 36.7 C 36.6 C Pulse Rate 91 79 Respiratory Rate 18 20 Blood Pressure
--- NOTE | 2020-02-07 17:29 | PM.IMPN ---
Progress Note: A&P Assessment and Plan (1) COPD exacerbation: Code(s): J44.1 - Chronic obstructive pulmonary disease with (acute) exacerbation Status: Acute Assessment and Plan: Precipitated by upper respiratory infection, rule out COVID-19. Inhaler and azithromycin no steroids as her glucose goes up Cornet and Mucinex to help mobilize secretions. Schedule albuterol and tiotropium MDI. May need home oxygen evaluation before discharge. (2) Insulin dependent type 2 diabetes mellitus: Code(s): E11.9 - Type 2 diabetes mellitus without complications; Z79.4 - [facility] (current) use of insulin Status: Acute Assessment and Plan: Hemoglobin A1c of 12.9% today. Continue basal and mealtime insulin. Initiate sliding scale insulin, Accu-Cheks, and hypoglycemic protocol. (3) Hypertension: Code(s): I10 - Essential (primary) hypertension Status: Chronic Assessment and Plan: Blood pressures were reviewed and they have been running in the 140s to 160 systolic. Continue antihypertensives and monitor daily. (4) Hyperlipidemia: Code(s): E78.5 - Hyperlipidemia, unspecified Status: Chronic Assessment and Plan: Continue statin; LFTs within normal limits. (5) Restless leg syndrome: Code(s): G25.81 - Restless legs syndrome Status: Acute Assessment and Plan: Continue pramipexole. (6) Tobacco dependence: Code(s): F17.200 - Nicotine dependence, unspecified, uncomplicated Status: Acute Assessment and Plan: Smoking cessation discused (7) Chronic kidney disease, stage 3: Code(s): N18.3 - Chronic kidney disease, stage 3 (moderate) Status: Acute Assessment and Plan: Creatinine is stable Subjective Date/time seen: 02/07/20 17:29 Interval history: Lorraine is a 69-year-old female smoker with COPD, lung cancer, insulin-dependent diabetes, hyperlipidemia, anxiety who presented to the emergency department earlier today via EMS from home for evaluation of shortness of breath. Admitted for COPd excerbation, awaiting covid test Review of Systems Respiratory: Respiratory: Reports cough, Reports dyspnea and Reports wheezing Exam Narrative: Exam Narrative: General: Large lady good spirits HEENT: She is wearing glasses. Neck: Supple. No JVD. Respiratory: mild cough Mild wheezes in lungs Cardiovascular: Regular rate and rhythm with S1-S2. Gastrointestinal: Abdomen is soft, nontender, and nondistended with positive bowel sounds. Skin: Warm and dry. No rash or lesions on limited exam. Neurological: Alert. No gross focal deficits to casual conversation. Psychiatric: Pleasant and cooperative with normal mood and affect. Judgment and insight intact. Objective Data Vital Signs Vital Signs: Vital Signs - 24 hr 02/06/20 20:00 02/06/20 20:56 02/07/20 00:00 Temperature 36.7 C 36.6 C Pulse Rate 91 79 Respiratory Rate 18 20 Blood Pressure 151/65 H 135/51 L Pulse Oximetry 93 94 95 02/07/20 04:00 02/07/20 08:00 02/07/20 09:17 Temperature 36.4 C L 36.3 C L Pulse Rate 72 66 66 Respiratory Rate 18 16 Blood Pressure 148/59 H 130/52 L Pulse Oximetry 96 99 02/07/20 11:00 02/07/20 11:06 02/07/20 12:00 Temperature 36.4 C L Pulse Rate 69 Respiratory Rate 16 Blood Pressure 112/38 L Pulse Oximetry 87 L 91 92 Intake/Output Intake/Output: Intake & Output 02/04/20 02/05/20 02/06/20 02/07/20 23:59 23:59 23:59 23:59 Intake Total 240 1740 Output Total 12
[2020-02-07] MEDS: ALPRAZolam 0.5 MG TABLET 1 MG PO (17:30)
[2020-02-07 18:19] LABS: SARS-CoV-2 RNA PCR Negative
[2020-02-07 19:35] LABS: Glucose Point of Care 84 (65-105)
[2020-02-07 19:35] LABS: Glucose Point of Care 139 (65-105)
[2020-02-07] MEDS: INSULIN GLARGINE (*BKC) 100 UNITS/ML 60 UNITS SUB-Q (21:08)
[2020-02-07 21:41] LABS: Glucose Point of Care 268 (65-105)
[2020-02-08] VITALS (7 sets, daily range): BP systolic 153; BP diastolic 72; PULSE 76–98; RESP 16; TEMP 36.5; O2SAT 87–95
[2020-02-08] MEDS: ALBUTEROL SULFATE (*SP) AEROSOL 1 PUFF 4 PUFF INHALATION ×2 (02:34→08:03)
[2020-02-08 08:21] LABS: Glucose Point of Care 304 (65-105)
[2020-02-08] MEDS: INSULIN ASPART (*BKC) 100 UNITS/ML 30 UNITS SUB-Q ×2 (09:03→12:13)
[2020-02-08] MEDS: INSULIN ASPART (*BKC) 100 UNITS/ML SUB-Q ×2 (09:04→12:12)
[2020-02-08] MEDS: ENOXAPARIN 40 MG/0.4 ML SYRINGE SUB-Q (09:10)
[2020-02-08] MEDS: ALPRAZolam 0.5 MG TABLET 1 MG PO (09:10)
[2020-02-08] MEDS: AZITHROMYCIN 250 MG TABLET 500 MG PO (09:10)
[2020-02-08] MEDS: guaiFENesin 12 HR 600 MG TABCR PO (09:11)
[2020-02-08] MEDS: ROSUVASTATIN 10 MG TABLET 20 MG PO (09:11)
[2020-02-08] MEDS: METOPROLOL SUCCINATE EXT REL 25 MG TABCR PO (09:12)
--- NOTE | 2020-02-08 11:55 | HOMEO2EVAL ---
Home Oxygen Evaluation RC: Home Oxygen (O2) Evaluation Start: 02/08/20 11:21 Freq: ONCE Status: Active Protocol: RPE Activity Type Activity Date Activity User E-Sign Co-Sign Detail Recorded Client Recorded Date Recorded By Document 02/08/20 11:25 DJO [email or web address] 02/08/20 11:55 DJO Document 02/08/20 11:30 DJO [email or web address] 02/08/20 11:55 DJO Document 02/08/20 11:35 [email or web address] [email or web address] 02/08/20 11:55 DJO Document 02/08/20 11:50 [email or web address] [email or web address] 02/08/20 11:55 DJO 02/08/20 02/08/20 02/08/20 11:25 11:30 11:35 Home O2 Evaluation Test Phase Resting Exercise Exercise Oxygen Delivery Room Air Room Air Nasal Cannula Oxygen Flow Rate (L/min) 1 Pulse Oximetry (90-100 %) 91 87 L 90 Pulse Rate (60-100 beats/min) 84 94 98 Activity Tolerance Excellent Ambulation Distance (feet) 1,000 Treatment Charges O2 Evaluation 02/08/20 11:50 Home O2 Evaluation Test Phase Resting Oxygen Delivery Room Air Oxygen Flow Rate (L/min) Pulse Oximetry (90-100 %) 91 Pulse Rate (60-100 beats/min) 82 Activity Tolerance Ambulation Distance (feet) Treatment Charges
[2020-02-08 12:35] LABS: Glucose Point of Care 247 (65-105)
--- NOTE | 2020-02-08 14:09 | PM.DS ---
DS: Admitting Diagnosis Admitting Diagnosis Admitting Diagnosis: Shortness of breath. DS: Discharge Diagnosis Discharge Diagnosis (1) COPD exacerbation: Code(s): J44.1 - Chronic obstructive pulmonary disease with (acute) exacerbation Status: Acute Assessment and Plan: Precipitated by upper respiratory infection Inhaler and azithromycin to be continued at home Schedule albuterol and tiotropium MDI. filled for patient on discharge Pt had home oxygen evaluation before discharge. Pt passed her home oxygen assessment. (2) Insulin dependent type 2 diabetes mellitus: Code(s): E11.9 - Type 2 diabetes mellitus without complications; Z79.4 - prison (current) use of insulin Status: Acute Assessment and Plan: Hemoglobin A1c of 12.9% today. Continue basal and mealtime insulin. (3) Hypertension: Code(s): I10 - Essential (primary) hypertension Status: Chronic Assessment and Plan: Blood pressures were reviewed Continue antihypertensives and monitor daily. (4) Hyperlipidemia: Code(s): E78.5 - Hyperlipidemia, unspecified Status: Chronic Assessment and Plan: Continue statin; LFTs within normal limits. (5) Restless leg syndrome: Code(s): G25.81 - Restless legs syndrome Status: Acute Assessment and Plan: Continue pramipexole. (6) Tobacco dependence: Code(s): F17.200 - Nicotine dependence, unspecified, uncomplicated Status: Acute Assessment and Plan: Smoking cessation discused (7) Chronic kidney disease, stage 3: Code(s): N18.3 - Chronic kidney disease, stage 3 (moderate) Status: Acute Assessment and Plan: Creatinine is stable DS: Summary Time Spent with Patient Time attestation: Total time spent providing and/or coordinating discharge services:40 minutes on day of discharge Exam Narrative: Exam Narrative: General: Large lady good spirits HEENT: She is wearing glasses. Neck: Supple. No JVD. Respiratory: mild cough no wheezes in lungs Cardiovascular: Regular rate and rhythm with S1-S2. Gastrointestinal: Abdomen is soft, nontender, and nondistended with positive bowel sounds. Skin: Warm and dry. No rash or lesions on limited exam. Neurological: Alert. No gross focal deficits to casual conversation. Psychiatric: Pleasant and cooperative with normal mood and affect. Judgment and insight intact. DS: Data Data Completed and Pending Labs on day of discharge: Labs from last 24 hours 02/08/20 02/08/20 02/07/20 12:12 08:17 21:05 POC Capillary Glucose 247 H 304 H 268 H SARS-CoV-2 RNA (RT-PCR) 02/07/20 02/07/20 02/07/20 19:32 16:59 09:33 POC Capillary Glucose 139 H 84 227 H SARS-CoV-2 RNA (RT-PCR) 02/06/20 14:36 POC Capillary Glucose SARS-CoV-2 RNA (RT-PCR) Negative Discharge Plan Discharge Attending physician on discharge: Molly Ramirez Consulting providers: Leonides Archer Discharging Clinician: Molly Ramirez Anticipated Discharge Date/Time: 02/08/20 11:04 Patient Disposition: Home, Self-Care Activity: as tolerated Diet: diabetic Patient Instructions: Antibiotic Form, How to Stop Smoking (DC) Stand Alone Forms: General Discharge Information Follow-up/Referrals: Leonides Archer PA-C [Emergency Midlevel Provider] - (pt to join a pcp as a new patient otherwise follow up in ed if gets unwell ) Discharge Medications: New azithromycin [Zithromax] 250 mg Tablet 500 mg P
== END 2020-02-08 13:05 | disposition home or self-care (01) ==
LOC: ANHED 13:03 → ANH3MEDSUR 17:02
PROVIDERS: Physician Assistant; Admitting Provider Internal Medicine; Emergency Provider Emergency Medicine; PCP Radiology Diagnostic Radiology; Visit Provider Family Medicine
DX: J44.1 Chronic obstructive pulmonary disease with (acute) exacerbation (principal); Z20.828 Contact with and (suspected) exposure to other viral communicable diseases; E11.65 Type 2 diabetes mellitus with hyperglycemia; E11.22 Type 2 diabetes mellitus with diabetic chronic kidney disease; E78.5 Hyperlipidemia, unspecified; F17.210 Nicotine dependence, cigarettes, uncomplicated; G25.81 Restless legs syndrome; I12.9 Hypertensive chronic kidney disease with stage 1 through stage 4 chronic kidney disease, or unspecified chronic kidney disease; N18.3 Chronic kidney disease, stage 3 (moderate); Z79.4 Long term (current) use of insulin
CPT/HCPCS: 36415; 71045; 80048; 80076; 82948; 83036; 83735; 85025; 85027; 87635; 93005; 94618; 94640; 94667; 96372; 96374; 99285; A9270; C9803; G0378; J1650; J1815; J2930; U0003

== ENCOUNTER 2020-07-09 20:30 | Emergency (ER) | payer MEDICARE, OTHER, SELFPAY ==
--- NOTE | ~2020-07-09 | XR_ITS ---
XR chest 2V DATE: 07/09/2020 22:41 INDICATION: Shortness of breath. History of COPD. TECHNIQUE: AP and lateral views COMPARISON: 02/06/2020 portable AP chest FINDINGS: Cardiomegaly. Aortic arch calcification. There is chronic fibrotic change at the right lung base and left midlung. The lungs otherwise appear clear. No pulmonary vascular congestion or pleural effusion or pneumothorax. IMPRESSION: Cardiomegaly Aortic atherosclerosis Chronic right basilar and left midlung scarring Reviewed, dictated and finalized at location A. R CHECKER
[2020-07-09 20:36] VITALS: BP 136/58; PULSE 58; RESP 16; TEMP 36.6; O2SAT 95
[2020-07-09 22:02] VITALS: PULSE 56
--- NOTE | 2020-07-09 22:23 | ECG_ITS ---
Measurements Intervals [place] Rate: 57 P: 61 [place]: 129 QRS: 52 QRSD: 133 T: 161 QT: 439 QTc: 430 Interpretive Statements SINUS BRADYCARDIA RIGHT BUNDLE BRANCH BLOCK T WAVE ABNORMALITY IN ANTEROLAT/HIGH LAT LEADS- CONSIDER ISCHEMIA ABNORMAL ECG Electronically Signed On 07-10-2020 6:29:44 [employer] by Roberto Clayton D.O.
[2020-07-09 22:40] LABS: Basophils Percent Auto 0.3 % (0.2-1.2); Eosinophils Absolute Auto 0.1 K/mm3 (0-0.3); Eosinophils Percent Auto 0.5 % (0-4.4); Hematocrit 47.7 % (37.0-47.0); Hemoglobin 15.5 g/dL (12.0-15.0); Immature Granulocyte Absolute 0.08 K/mm3 (0.00-0.031); Immature Granulocyte Percent A 0.6 % (0-0.5); Lymphocytes Absolute Auto 2.75 K/mm3 (0.9-3.2); Lymphocytes Percent Auto 20.8 % (18.3-44.2); Mean Corpuscular HGB Conc 32.5 g/dl (32-36); Mean Corpuscular Volume 89.2 fl (80-100); Monocytes Absolute Auto 0.6 K/mm3 (0.1-0.6); Monocytes Percent Auto 4.4 % (2.6-8.5); Neutrophils Absolute Auto 9.7 K/mm3 (1.3-6.7); Neutrophils Percent Auto 73.4 % (45.5-73.1); Platelet Count Result 227 k/mm3 (150-375); Red Blood Count 5.35 M/mm3 (4.2-5.4); Red Cell Distribution Width 13.7 % (11.5-14.5); White Blood Count 13.2 K/mm3 (4.5-10.0)
[2020-07-09 22:45] LABS: Add Urine Microscopic? YES; Appearance Urine Cloudy (Clear); Bacteria Urine Trace /hpf; Bilirubin Urine Negative (Negative); Blood Urine Negative (Negative); Color Urine Yellow (Yellow); Glucose Urine UA 3+ mg/dL (Negative); Ketones Urine Negative (Negative); Leukocyte Esterase Ur 2+ LEU/UL (Negative); Mucus Urine Rare /lpf; Nitrate Urine Negative (Negative); Protein Urine Negative (Negative); Specific Grav Ur 1.014 (1.001-1.035); Squamous Epithelial Cell Urine Many /hpf (Few); Urobilinogen Urine Negative mg/dL (<2.0)
[2020-07-09 22:47] LABS: Alanine Aminotransferase 37 U/L (4-35); Albumin Level 3.4 g/dL (3.5-5.1); Alkaline Phosphatase 132 U/L (38-126); Anion Gap 5 mmol/L (8-16); Aspartate Amino Transferase 28 U/L (14-36); Bilirubin,Total 0.4 mg/dL (0.2-1.3); Blood Urea Nitrogen 55 mg/dL (7-17); Carbon Dioxide 30 mmol/L (22-30); Chloride 101 mmol/L (98-107); Estimated CRCL calculation 37 ml/min; Estimated Glomerular Filt Rate 49; Glucose 161 mg/dL (65-105); Potassium 4.6 mmol/L (3.4-5.0); Sodium 136 mmol/L (137-145)
[2020-07-09] MEDS: SODIUM CHLORIDE 0.9% IV 1,000 ML 999 ML IV CONT (23:14)
--- NOTE | 2020-07-09 23:57 | ED.GENADULT ---
HPI - General Adult General Chief complaint: Unspecified Stated complaint: hyperglycemia Time Seen by Provider: 07/09/20 22:54 History of Present Illness HPI narrative: Patient 70-year-old female who presents the emergency department with chief complaint of elevated blood sugar and generalized malaise. Patient states for the last several days she has felt unwell and noticed today that her blood sugar was reading high. The patient is an insulin-dependent diabetic reports that she is had a little bit of nausea with this denies vomiting or diarrhea. Patient denies fever denies chills. Patient reports symptoms are not improved by anything or they worsened by anything. Related Data Home Medications Medication Instructions Recorded Confirmed alprazolam 2 mg PO BID 06/19/19 02/06/20 pramipexole 2 mg PO HS 06/19/19 02/08/20 Basaglar KwikPen U-100 Insulin 60 unit SUBCUT DAILY 09/21/19 02/06/20 insulin aspart U-100 [Novolog 30 unit SUBCUT TID 09/21/19 02/06/20 U-100 Insulin aspart] rosuvastatin 20 mg PO DAILY 09/21/19 02/06/20 ibuprofen 800 mg PO BID PRN 12/17/19 02/06/20 Allergies Allergy/AdvReac Type Severity Reaction Status Date / Time acetaminophen AdvReac Unknown Nausea and Verified 02/06/20 10:20 Vomiting Review of Systems Review of Systems: Narrative: A 10 system review of systems was completed on the patient and is negative except for what is stated in the HPI. Nursing and ancillary documentation was reviewed. [facility] Past Medical History Medical History Anxiety Cholelithiasis Chronic kidney disease, stage 3 History of echocardiogram (~09/21/19) 1. Left ventricular chamber dimension is normal. 2. Apical hypertrophy with spade-shaped left ventricular chamber noted, consistent with apical hypertrophic cardiomyopathy. 3. Left ventricular systolic function is hyperdynamic, estimated at 65-70%. 4. Mild lipomatous hypertrophy of atrial septum. 5. Mild pulmonary hypertension, estimated pulmonary arterial systolic pressure 46 mmHg. 6. Technically difficult study with limited views. Hyperlipidemia Hypertension Insulin dependent type 2 diabetes mellitus Hemoglobin was 14% in June 2019. Lung cancer Status post partial lobectomy and radiation. Normal nuclear stress test (~09/21/19) Osteoarthritis Restless leg syndrome Tobacco dependence Urinary incontinence Surgical History Surgical History History of appendectomy History of bilateral carpal tunnel release History of elbow surgery Left elbow surgery for what sounds like ulnar nerve transposition. History of partial hysterectomy History of total right hip arthroplasty (~12/01/16) History of tubal ligation Status post partial lobectomy of lung (~04/21/16) Resection of lung cancer from right lung. Family History Family History Sibling Acute myocardial infarction Father Lung cancer Mother No problems noted. Social History Social History Social History: Flory lives in [place] with her . They had 2 sons, 1 which was killed in 1988. She is retired from [employer], working with [employer]. She began smoking at the age of 17, typically smoking about half to 1 pack of cigarettes per day. She has quit off and on over the years but continues to go back to smoking , due to stress in her marriage. She designates her son Lauro Downing as her surrogate decision maker. She does not think that she would want to be resuscitated but has no advance directive. Smoking packs per day: 0.5 Smoking cigarettes per day: 10.0 Years smoked: 40 Smoking pack-years: 20.00 Smoking status: Light tobacco smoker Tobacco type: cigarettes Second hand tobacco smoke exposure: No Alcohol intake:
[2020-07-10] MEDS: CEPHALEXIN 500 MG CAPSULE PO (00:11)
[2020-07-10 00:26] VITALS: BP 131/87; PULSE 82; RESP 16; TEMP 36.3; O2SAT 98
== END 2020-07-10 00:27 | disposition home or self-care (01) ==
PROVIDERS: Emergency Medicine; Emergency Provider Emergency Medicine; Family Provider Internal Medicine Endocrinology, Diabetes & Metabolism; PCP Radiology Diagnostic Radiology
DX: E11.65 Type 2 diabetes mellitus with hyperglycemia (principal); N39.0 Urinary tract infection, site not specified; E11.22 Type 2 diabetes mellitus with diabetic chronic kidney disease; I12.9 Hypertensive chronic kidney disease with stage 1 through stage 4 chronic kidney disease, or unspecified chronic kidney disease; F17.210 Nicotine dependence, cigarettes, uncomplicated; N18.30 Chronic kidney disease, stage 3 unspecified; Z79.4 Long term (current) use of insulin; F41.9 Anxiety disorder, unspecified; E78.5 Hyperlipidemia, unspecified; Z85.118 Personal history of other malignant neoplasm of bronchus and lung; Z90.2 Acquired absence of lung [part of]; Z92.3 Personal history of irradiation; M19.90 Unspecified osteoarthritis, unspecified site; G25.81 Restless legs syndrome; R00.1 Bradycardia, unspecified; I45.10 Unspecified right bundle-branch block
CPT/HCPCS: 36415; 71046; 80053; 81001; 85025; 87086; 87088; 93005; 96360; 99283; A9270; J7030

== ENCOUNTER 2020-08-10 14:47 | Emergency (ER) | payer MEDICARE, SELFPAY ==
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
[2020-08-10 14:45] VITALS: BP 118/95; PULSE 117; RESP 20; TEMP 36.8; O2SAT 90
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
[2020-08-10 16:13] VITALS: BP 130/71; PULSE 105; RESP 22; O2SAT 96
[2020-08-10] MEDS: KETOROLAC 15 MG/ML VIAL (*BKC) 10 MG IV PUSH (16:21)
[2020-08-10] MEDS: SODIUM CHLORIDE 0.9% IV 500 ML 999 ML IV CONT (16:22)
[2020-08-10 17:41] VITALS: BP 130/71; PULSE 99; RESP 20; O2SAT 99
== END 2020-08-10 17:45 | disposition home or self-care (01) ==
PROVIDERS: Emergency Provider Emergency Medicine
DX: S09.91XA Unspecified injury of ear, initial encounter (principal); S09.90XA Unspecified injury of head, initial encounter; I12.9 Hypertensive chronic kidney disease with stage 1 through stage 4 chronic kidney disease, or unspecified chronic kidney disease; N18.30 Chronic kidney disease, stage 3 unspecified; E11.22 Type 2 diabetes mellitus with diabetic chronic kidney disease; Z87.891 Personal history of nicotine dependence; E78.5 Hyperlipidemia, unspecified; M19.90 Unspecified osteoarthritis, unspecified site; G25.81 Restless legs syndrome; Z85.118 Personal history of other malignant neoplasm of bronchus and lung; Z90.2 Acquired absence of lung [part of]; Y04.2XXA Assault by strike against or bumped into by another person, initial encounter
CPT/HCPCS: 70450; 70486; 71045; 72125; 96361; 96374; 99284; J1885; J7040

== ENCOUNTER 2020-08-13 16:27 | Emergency (ER) | payer MEDICARE, SELFPAY ==
[2020-08-13] VITALS (16 sets, daily range): BP systolic 110–158; BP diastolic 48–80; PULSE 72–97; RESP 15–30; TEMP 36.3; O2SAT 89–100
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
--- NOTE | 2020-08-13 16:51 | ECG_ITS ---
Measurements Intervals [place] Rate: 80 P: 62 PA: 129 QRS: 54 QRSD: 140 T: 231 QT: 382 QTc: 443 Interpretive Statements SINUS RHYTHM ATRIAL COUPLET POSSIBLE LEFT ATRIAL ENLARGEMENT RIGHT BUNDLE BRANCH BLOCK T WAVE ABNORMALITY IN ANTEROLATERAL LEADS- CONSIDER ISCHEMIA BASELINE ARTIFACT- I, II, III, AVR, AVL, AVF ABNORMAL ECG Electronically Signed On 08-13-2020 20:32:13 PRODUCT DEVELOPMENT by Roberto Clayton D.O.
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
[2020-08-13 17:10] LABS: Alveolar/Arterial O2 Gradient 43.7 mmHg; Base Excess ABG 1.5 mEq/l (+/-2.0); Carboxyhemoglobin 4.5 % THb (0-2.0); Fractional Inspired Oxygen 21 %; HCO3 ABG 25.5 mEq/l (22.0-26.0); Methemoglobin ABG 0.2 %THb (0-1.5); Oxygen Saturation ABG 91.9 % (95.0-100.0); PCO2 ABG 38.5 mmHg (35.0-45.0); PO2 ABG 59.9 mmHg (80.0-100.0); PO2 FiO2 Ratio Arterial Blood 2.85 %; Reduced Hemoglobin 7.3 %THb (0-5.0); Total Hemoglobin 15.4 g/dL (12.0-18.0); pH ABG 7.439 (7.350-7.450)
[2020-08-13] MEDS: traMADol HCL (*CRX) 50 MG TABLET PO (17:10)
[2020-08-13 17:11] LABS: Device ROOM AIR; Modified Allen's Test Pass; Site Drawn RIGHT RADIAL
[2020-08-13 17:36] LABS: Basophils Percent Auto 0.2 % (0.2-1.2); Eosinophils Percent Auto 0.2 % (0-4.4); Hematocrit 47.4 % (37.0-47.0); Hemoglobin 15.1 g/dL (12.0-15.0); Immature Granulocyte Absolute 0.06 K/mm3 (0.00-0.031); Immature Granulocyte Percent A 0.5 % (0-0.5); Lymphocytes Percent Auto 7.2 % (18.3-44.2); Mean Corpuscular HGB Conc 31.9 g/dl (32-36); Mean Corpuscular Hemoglobin 28.7 pg (26-34); Mean Corpuscular Volume 89.9 fl (80-100); Monocytes Absolute Auto 0.7 K/mm3 (0.1-0.6); Neutrophils Absolute Auto 10.7 K/mm3 (1.3-6.7); Neutrophils Percent Auto 85.9 % (45.5-73.1); Platelet Count Result 241 k/mm3 (150-375); Red Blood Count 5.27 M/mm3 (4.2-5.4); Red Cell Distribution Width 14.5 % (11.5-14.5); White Blood Count 12.4 K/mm3 (4.5-10.0)
[2020-08-13 17:41] LABS: Add Urine Microscopic? YES; Appearance Urine Clear (Clear); Bacteria Urine Trace /hpf; Bilirubin Urine Negative (Negative); Blood Urine Negative (Negative); Color Urine Straw (Yellow); Glucose Urine UA 3+ mg/dL (Negative); Ketones Urine Negative (Negative); Leukocyte Esterase Ur 1+ LEU/UL (Negative); Mucus Urine Rare /lpf; Nitrate Urine Negative (Negative); Protein Urine Negative (Negative); RBC Urine 0-2 /hpf (0-2); Specific Grav Ur 1.029 (1.001-1.035); Squamous Epithelial Cell Urine Many /hpf (Few); Urobilinogen Urine Negative mg/dL (<2.0); WBC Urine 0-3 /hpf
[2020-08-13 17:46] LABS: INR 0.9; Prothrombin Time 12.4 Seconds (11.1-14.7)
[2020-08-13 17:47] LABS: Partial Thromboplastin Time 22.9 SECONDS (22.3-36.8)
[2020-08-13 17:50] LABS: Alanine Aminotransferase 80 U/L (4-35); Albumin Level 3.4 g/dL (3.5-5.1); Alkaline Phosphatase 167 U/L (38-126); Anion Gap 1 mmol/L (8-16); Aspartate Amino Transferase 47 U/L (14-36); Bilirubin,Total 1.2 mg/dL (0.2-1.3); Blood Urea Nitrogen 33 mg/dL (7-17); CRP 7.5 mg/dL (<1.0); Carbon Dioxide 32 mmol/L (22-30); Chloride 103 mmol/L (98-107); Estimated CRCL calculation 48 ml/min; Estimated Glomerular Filt Rate 55; Glucose 350 mg/dL (65-105); Lipase 120 U/L (23-300); Potassium 4.1 mmol/L (3.4-5.0); Sodium 136 mmol/L (137-145)
[2020-08-13] MEDS: LACTATED RINGERS 1,000 ML 999 ML IV CONT (18:06)
== END 2020-08-13 20:15 | disposition home or self-care (01) ==
PROVIDERS: General Practice; Emergency Provider Emergency Medicine; PCP Emergency Medicine
DX: S20.222A Contusion of left back wall of thorax, initial encounter (principal); S05.11XA Contusion of eyeball and orbital tissues, right eye, initial encounter; J44.9 Chronic obstructive pulmonary disease, unspecified; Z99.81 Dependence on supplemental oxygen; R00.8 Other abnormalities of heart beat; R94.31 Abnormal electrocardiogram [ECG] [EKG]; I45.10 Unspecified right bundle-branch block; Y04.2XXA Assault by strike against or bumped into by another person, initial encounter
CPT/HCPCS: 36415; 36600; 71045; 71260; 74177; 80053; 81001; 82375; 82805; 83050; 83690; 85025; 85610; 85730; 86140; 93005; 96360; 99284; A9270; J7120; Q9967

== ENCOUNTER 2020-08-20 11:43 | Emergency (ER) | payer MEDICARE, SELFPAY ==
[2020-08-20] VITALS (17 sets, daily range): BP systolic 126–163; BP diastolic 59–84; PULSE 65–95; RESP 16–26; TEMP 36.5; O2SAT 92–100
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
--- NOTE | 2020-08-20 11:51 | ECG_ITS ---
Measurements Intervals [place] Rate: 88 P: 56 VT: 130 QRS: 65 QRSD: 127 T: -23 QT: 357 QTc: 434 Interpretive Statements SINUS RHYTHM FREQUENT ATRIAL PREMATURE COMPLEXES RIGHT BUNDLE BRANCH BLOCK BASELINE ARTIFACT- AVF ABNORMAL ECG Electronically Signed On 08-20-2020 12:05:37 HEALTH AND SAFETY MANAGER by Roberto Clayton D.O.
[2020-08-20 12:17] LABS: Basophils Percent Auto 0.3 % (0.2-1.2); Eosinophils Absolute Auto 0.1 K/mm3 (0-0.3); Eosinophils Percent Auto 1.5 % (0-4.4); Hematocrit 44.1 % (37.0-47.0); Hemoglobin 14.1 g/dL (12.0-15.0); Immature Granulocyte Absolute 0.08 K/mm3 (0.00-0.031); Immature Granulocyte Percent A 0.8 % (0-0.5); Lymphocytes Absolute Auto 2.24 K/mm3 (0.9-3.2); Lymphocytes Percent Auto 23.7 % (18.3-44.2); Mean Corpuscular Hemoglobin 28.5 pg (26-34); Mean Corpuscular Volume 89.1 fl (80-100); Monocytes Absolute Auto 0.7 K/mm3 (0.1-0.6); Monocytes Percent Auto 7.1 % (2.6-8.5); Neutrophils Absolute Auto 6.3 K/mm3 (1.3-6.7); Neutrophils Percent Auto 66.6 % (45.5-73.1); Platelet Count Result 264 k/mm3 (150-375); Red Blood Count 4.95 M/mm3 (4.2-5.4); White Blood Count 9.5 K/mm3 (4.5-10.0)
[2020-08-20 12:29] LABS: Alanine Aminotransferase 35 U/L (4-35); Albumin Level 3.1 g/dL (3.5-5.1); Alkaline Phosphatase 172 U/L (38-126); Anion Gap 2 mmol/L (8-16); Aspartate Amino Transferase 20 U/L (14-36); Bilirubin,Total 0.2 mg/dL (0.2-1.3); Blood Urea Nitrogen 31 mg/dL (7-17); Calcium 9.4 mg/dL (8.4-10.2); Carbon Dioxide 32 mmol/L (22-30); Chloride 101 mmol/L (98-107); Estimated CRCL calculation 48 ml/min; Estimated Glomerular Filt Rate 55; Glucose 341 mg/dL (65-105); Potassium 4.2 mmol/L (3.4-5.0); Sodium 135 mmol/L (137-145)
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
[2020-08-20] MEDS: LACTATED RINGERS 1,000 ML 999 ML IV CONT (12:45)
[2020-08-20 13:01] LABS: Add Urine Microscopic? YES; Appearance Urine Clear (Clear); Bilirubin Urine Negative (Negative); Blood Urine Negative (Negative); Color Urine Yellow (Yellow); Glucose Urine UA 3+ mg/dL (Negative); Ketones Urine Negative (Negative); Leukocyte Esterase Ur Negative LEU/UL (Negative); Mucus Urine Rare /lpf; Nitrate Urine Negative (Negative); Protein Urine Negative (Negative); RBC Urine 0-2 /hpf (0-2); Specific Grav Ur 1.027 (1.001-1.035); Squamous Epithelial Cell Urine Many /hpf (Few); Urobilinogen Urine Negative mg/dL (<2.0); WBC Urine 0-3 /hpf
--- NOTE | 2020-08-20 14:19 | PC.NURSE ---
Pt to CT at this time.
--- NOTE | 2020-08-20 14:30 | PC.NURSE ---
1000cc LR infused.
== END 2020-08-20 14:55 | disposition home or self-care (01) ==
PROVIDERS: Emergency Medicine; Emergency Provider Emergency Medicine; PCP Emergency Medicine
DX: E11.65 Type 2 diabetes mellitus with hyperglycemia (principal); E11.22 Type 2 diabetes mellitus with diabetic chronic kidney disease; I12.9 Hypertensive chronic kidney disease with stage 1 through stage 4 chronic kidney disease, or unspecified chronic kidney disease; F17.210 Nicotine dependence, cigarettes, uncomplicated; N18.30 Chronic kidney disease, stage 3 unspecified; E78.5 Hyperlipidemia, unspecified; Z79.4 Long term (current) use of insulin; Z85.118 Personal history of other malignant neoplasm of bronchus and lung; Z90.2 Acquired absence of lung [part of]; Z92.3 Personal history of irradiation; G25.81 Restless legs syndrome; M19.90 Unspecified osteoarthritis, unspecified site; Z96.641 Presence of right artificial hip joint; I49.1 Atrial premature depolarization; I45.10 Unspecified right bundle-branch block
CPT/HCPCS: 36415; 70450; 71046; 80053; 81001; 85025; 93005; 96360; 96361; 99284; J7120

== ENCOUNTER 2020-08-28 17:05 | Inpatient (IN) | payer MEDICARE, SELFPAY ==
[2020-08-28] VITALS (10 sets, daily range): BP systolic 155–164; BP diastolic 65–98; PULSE 61–99; RESP 16–24; TEMP 36–36.8; O2SAT 90–100; BMI 30.1
--- NOTE | ~2020-08-28 | CT_ITS ---
EXAMINATION: CTA chest EXAM DATE: 08/29/2020 14:37 INDICATION: Assess for aortic dissection, midscapular pain. TECHNIQUE: Spiral CT of the chest without and then with intravenous injection of 100 mL Omnipaque 35 0. Axial, coronal and sagittal images were reviewed. Coronal maximum intensity pixel images of ches t reviewed. Maximum intensity projection 3-D reconstructions of the aorta were created by the technol colten on dedicated workstation. The dose-length product (DLP) for this examination was 562.80 mGy-c m. The exposure was tailored according to patient size (auto mA exposure control), and iterative rec onstruction (ASIR) was used as additional dose reduction technique. Comparison is made to prior exami nation from 08/13/2020. FINDINGS: AORTA: Normal in caliber and without dissection. There is mild scattered arteriosclerotic disease. No evidence of pulmonary emboli. Again there are scattered small pulmonary nodules identified bilater ally up to about 6 mm in size, could be postinfectious but metastatic disease not excludable and 3 mo nth follow-up chest CT recommended. There are other scattered calcified granulomas, and regions of li near postinfectious scarring. There is mild to moderate emphysema. There are no pleural or pericardi al effusions. Tracheobronchial tree is patent. There is no mediastinal, hilar or axillary lymphad enopathy. There is no pneumothorax. There is cardiomegaly. There is moderate coronary arterial c alcification, arterial sclerosis. Thyromegaly. Upper abdomen is unremarkable. There is mild to mod erate thoracic spondylosis without osteoblastic or osteolytic lesions identified. Posterior thoraci c soft tissues and paraspinal region is unremarkable. IMPRESSION: 1. No aortic aneurysm, dissection, pulmonary emboli or other acute findings. 2. Scattered pulmonary nodules could be postinfectious but 3 month follow-up recommended to exclude metastatic disease. 3. Mild to moderate emphysema. 4. Cardiomegaly. Reviewed, dictated and finalized at location A. IMPRESSION: 1. No aortic aneurysm, dissection, pulmonary emboli or other acute findings. 2. Scattered pulmonary nodules could be postinfectious but 3 month follow-up r ecommended to exclude metastatic disease. 3. Mild to moderate emphysema. 4. Cardiomegaly.
--- NOTE | ~2020-08-28 | XR_ITS ---
XR chest 1V portable DATE: 08/28/2020 17:55 INDICATION: Generalized chest pain. Shortness of breath. History of COPD. TECHNIQUE: Portable AP chest on 08/28/2020 at 1758 hours COMPARISON: 08/30/2020 AP and lateral chest FINDINGS: Borderline or mild cardiomegaly. Aortic calcification. There is chronic mild blunting of the right costophrenic angle. There is mild infiltrate and/or atele ctasis at the right lung base. Diffuse osteopenia. IMPRESSION: Mild infiltrate or atelectasis at the right lung base Borderline or mild cardiomegaly Aortic calcification Reviewed, dictated and finalized at location A.
--- NOTE | 2020-08-28 17:09 | ECG_ITS ---
Measurements Intervals [place] Rate: 86 P: 56 [place]: 129 QRS: 65 QRSD: 135 T: 255 QT: 373 QTc: 446 Interpretive Statements SINUS RHYTHM ATRIAL PREMATURE COMPLEX AND SUPRAVENTRICULAR BIGEMINY RIGHT BUNDLE BRANCH BLOCK BORDERLINE ST-T WAVE ABNORMALITY- INFERIOR LEADS BASELINE ARTIFACT- I, II ABNORMAL ECG Electronically Signed On 08-28-2020 20:17:39 CDT by Roberto Clayton D.O.
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
[2020-08-28] MEDS: IPRATROPIUM BR 0.02% INH SOLN 0.5 MG/2.5 ML VIAL INHALATION (17:40)
[2020-08-28] MEDS: ALBUTEROL SULFATE NEB 2.5 MG/0.5 ML INH 5 MG INHALATION ×2 (17:40→22:10)
[2020-08-28 17:48] LABS: Basophils Percent Auto 0.2 % (0.2-1.2); Eosinophils Absolute Auto 0.1 K/mm3 (0-0.3); Eosinophils Percent Auto 0.4 % (0-4.4); Hematocrit 44.4 % (37.0-47.0); Hemoglobin 14.2 g/dL (12.0-15.0); Immature Granulocyte Absolute 0.07 K/mm3 (0.00-0.031); Immature Granulocyte Percent A 0.5 % (0-0.5); Lymphocytes Absolute Auto 1.92 K/mm3 (0.9-3.2); Lymphocytes Percent Auto 14.3 % (18.3-44.2); Mean Corpuscular Hemoglobin 28.4 pg (26-34); Mean Corpuscular Volume 88.8 fl (80-100); Mean Platelet Volume 9.7 fl (7.4-10.4); Monocytes Absolute Auto 0.8 K/mm3 (0.1-0.6); Monocytes Percent Auto 5.7 % (2.6-8.5); Neutrophils Absolute Auto 10.6 K/mm3 (1.3-6.7); Neutrophils Percent Auto 78.9 % (45.5-73.1); Platelet Count Result 352 k/mm3 (150-375); Red Cell Distribution Width 14.3 % (11.5-14.5); White Blood Count 13.4 K/mm3 (4.5-10.0)
[2020-08-28 17:50] LABS: Alveolar/Arterial O2 Gradient 34.1 mmHg; Base Excess ABG 5.5 mEq/l (+/-2.0); Carboxyhemoglobin 3.8 % THb (0-2.0); Device ROOM AIR; Fractional Inspired Oxygen 21 %; HCO3 ABG 31.6 mEq/l (22.0-26.0); Methemoglobin ABG 0.2 %THb (0-1.5); Modified Allen's Test Pass; Oxygen Content ABG 17.8 %vol (16.0-22.0); Oxygen Saturation ABG 87.4 % (95.0-100.0); Oxyhemoglobin 84.4 % THb (90.0-100.0); PCO2 ABG 51.9 mmHg (35.0-45.0); PO2 ABG 53.5 mmHg (80.0-100.0); PO2 FiO2 Ratio Arterial Blood 2.55 %; Reduced Hemoglobin 11.6 %THb (0-5.0); Site Drawn LEFT RADIAL; pH ABG 7.403 (7.350-7.450)
[2020-08-28 17:58] LABS: INR 0.9; Partial Thromboplastin Time 23.7 SECONDS (22.3-36.8)
[2020-08-28 18:01] LABS: Alanine Aminotransferase 24 U/L (4-35); Albumin Level 3.5 g/dL (3.5-5.1); Alkaline Phosphatase 187 U/L (38-126); Anion Gap 4 mmol/L (8-16); Aspartate Amino Transferase 21 U/L (14-36); Bilirubin,Total 0.5 mg/dL (0.2-1.3); Blood Urea Nitrogen 32 mg/dL (7-17); Calcium 9.6 mg/dL (8.4-10.2); Carbon Dioxide 33 mmol/L (22-30); Chloride 100 mmol/L (98-107); D Dimer 0.38 ug/mL (<0.48); Estimated Glomerular Filt Rate 55; Glucose 284 mg/dL (65-105); Potassium 3.9 mmol/L (3.4-5.0); Sodium 137 mmol/L (137-145)
[2020-08-28 18:13] LABS: NT Pro B Type Natriuretic Pept 1030 PG/ML (5-100); Troponin I 0.032 ng/mL (0.000-0.034)
[2020-08-28 18:26] LABS: Lactic Acid Reflex 1.1 mmol/L (0.7-2.1)
[2020-08-28] MEDS: PANTOPRAZOLE SODIUM IV 40 MG VIAL IV PUSH (18:30)
[2020-08-28] MEDS: SODIUM CHLORIDE 0.9% IV 1,000 ML 999 ML IV CONT (19:12)
[2020-08-28 19:18] LABS: Add Urine Microscopic? YES; Appearance Urine Cloudy (Clear); Bacteria Urine Trace /hpf; Bilirubin Urine Negative (Negative); Blood Urine Negative (Negative); Color Urine Yellow (Yellow); Glucose Urine UA 3+ mg/dL (Negative); Ketones Urine Negative (Negative); Leukocyte Esterase Ur Trace LEU/UL (Negative); Mucus Urine Rare /lpf; Nitrate Urine Negative (Negative); Protein Urine Negative (Negative); Specific Grav Ur 1.027 (1.001-1.035); Squamous Epithelial Cell Urine Many /hpf (Few); Urobilinogen Urine Negative mg/dL (<2.0)
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
[2020-08-28 20:56] LABS: Troponin I 0.036 ng/mL (0.000-0.034)
[2020-08-28] MEDS: LORazepam (*CRX) 0.5 MG TABLET PO (21:25)
[2020-08-28 23:55] LABS: Glucose Point of Care 290 (65-105)
--- NOTE | 2020-08-28 23:55 | ADMGEN ---
This patient, Flory Peters, was admitted to IMU Room 232-01. Patient/family oriented to hospital policies and general routines including ID bracelet, bed and alarms, visiting hours, pain management, procedures, bathroom and other care routines, personal items, smoking policy, room service/diet, and visiting hours. Information on how to activate the Rapid Response Team has been discussed. Patient/Family are encouraged to report perceived risks to care and to ask questions if they do not understand what they are told or what they should do. Kenyetta PETERSON [id number]
[2020-08-29] VITALS (24 sets, daily range): BP systolic 131–186; BP diastolic 71–99; PULSE 76–104; RESP 15–24; TEMP 36.1–36.8; O2SAT 94–99
[2020-08-29 00:31] LABS: Cholesterol 209 mg/dL (0-200); HDL Direct 53 mg/dL; Triglycerides 158 mg/dL (<150)
[2020-08-29 00:42] LABS: LDL Cholesterol Direct 121 mg/dL
[2020-08-29 00:44] LABS: Troponin I 0.034 ng/mL (0.000-0.034)
[2020-08-29] MEDS: ALBUTEROL SULFATE NEB 2.5 MG/0.5 ML INH 5 MG INHALATION ×4 (01:44→20:35)
--- NOTE | 2020-08-29 02:37 | ECG_ITS ---
Measurements Intervals [place] Rate: 99 P: 48 IN: 125 QRS: 35 QRSD: 133 T: -9 QT: 354 QTc: 455 Interpretive Statements SINUS RHYTHM WITH SINUS ARRHYTHMIA RIGHT BUNDLE BRANCH BLOCK ABNORMAL ECG Electronically Signed On 08-29-2020 11:15:23 CDT by Roberto Clayton D.O.
[2020-08-29 05:28] LABS: Anion Gap 5 mmol/L (8-16); Blood Urea Nitrogen 23 mg/dL (7-17); Calcium 8.8 mg/dL (8.4-10.2); Carbon Dioxide 32 mmol/L (22-30); Chloride 102 mmol/L (98-107); Estimated CRCL calculation 52 ml/min; Estimated Glomerular Filt Rate > 60; Glucose 351 mg/dL (65-105); Magnesium 1.5 mg/dL (1.6-2.3); Potassium 4.6 mmol/L (3.4-5.0); Sodium 139 mmol/L (137-145)
[2020-08-29 05:30] LABS: Basophils Percent Auto 0.2 % (0.2-1.2); Eosinophils Percent Auto 0.2 % (0-4.4); Hematocrit 47.1 % (37.0-47.0); Hemoglobin 14.6 g/dL (12.0-15.0); Immature Granulocyte Absolute 0.05 K/mm3 (0.00-0.031); Immature Granulocyte Percent A 0.4 % (0-0.5); Lymphocytes Absolute Auto 0.97 K/mm3 (0.9-3.2); Lymphocytes Percent Auto 7.8 % (18.3-44.2); Mean Corpuscular Hemoglobin 28.3 pg (26-34); Mean Corpuscular Volume 91.5 fl (80-100); Mean Platelet Volume 10.2 fl (7.4-10.4); Monocytes Absolute Auto 0.6 K/mm3 (0.1-0.6); Neutrophils Absolute Auto 10.7 K/mm3 (1.3-6.7); Neutrophils Percent Auto 86.4 % (45.5-73.1); Platelet Count Result 372 k/mm3 (150-375); Red Blood Count 5.15 M/mm3 (4.2-5.4); Red Cell Distribution Width 14.5 % (11.5-14.5); White Blood Count 12.4 K/mm3 (4.5-10.0)
[2020-08-29] MEDS: KETOROLAC 30 MG/ML VIAL (*BKC) IV PUSH (06:01)
--- NOTE | 2020-08-29 06:37 | PC.NURSE ---
Pt called out and asked for pain meds at approx 0535 I spoke with the dr at 0540 asking for home pain meds to be restarted. Pt then called family and said she has been laying in bed in her own pee crying in pain and we wont give any thing. Pt had been getting up to the bathroom w a walker I walked with her so I never knew she wet to bed and when she called out I called the dr. I does take a couple min for it to cross over in [facility] for me to pull. When I went in her room to give it she had taken off all her leads and pulled out IV. I then had to restart an IV to give it. Med was scanned at 0601.
[2020-08-29 08:38] LABS: Glucose Point of Care 359 (65-105)
[2020-08-29] MEDS: INSULIN GLARGINE (*BKC) 100 UNITS/ML 90 UNITS SUB-Q (09:58)
[2020-08-29] MEDS: ASPIRIN 81 MG CHEWABLE TABLET PO (09:59)
[2020-08-29] MEDS: predniSONE 20 MG TABLET 60 MG PO (09:59)
[2020-08-29] MEDS: METOPROLOL SUCCINATE EXT REL 25 MG TABCR PO ×2 (10:09→14:44)
[2020-08-29 10:57] LABS: Hemoglobin A1C > 14.0 % (<5.7)
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
[2020-08-29 12:36] LABS: Glucose Point of Care 408 (65-105)
[2020-08-29] MEDS: INSULIN ASPART (*BKC) 100 UNITS/ML SUB-Q ×2 (12:36→18:38)
[2020-08-29] MEDS: MAGNESIUM SULF 2 GM/WATER 50ML 2 GM/50 ML BAG IVPB (12:37)
[2020-08-29] MEDS: INSULIN ASPART (*BKC) 100 UNITS/ML 30 UNITS SUB-Q ×2 (12:37→18:38)
[2020-08-29] MEDS: ENOXAPARIN 40 MG/0.4 ML SYRINGE SUB-Q (12:38)
[2020-08-29] MEDS: guaiFENesin 12 HR 600 MG TABCR PO ×2 (12:38→19:56)
--- NOTE | 2020-08-29 14:06 | P.PNIM_ITS ---
Progress Note: A&P Assessment and Plan (1) Acute on chronic respiratory failure with hypoxemia: Code(s): J96.21 - Acute and chronic respiratory failure with hypoxia Status: Acute Assessment and Plan: Chronic respiratory failure related to COPD. She is on chronic 2 L supplemental oxygen, although she has not been using this at home. Acute respiratory failure felt related to COPD exacerbation. ABG showed hypoxemia. CXR demonstrated mild infiltrate versus atelectasis at right lung base. PE less likely given negative D-dimer. Pneumonia less likely given clinical findings. She is maintaining adequate O2 saturations on 2 L per nasal cannula. * Continue supplemental O2 with goal saturation 90% or above. Wean to goal. * Treatment of COPD exacerbation as described below * Incentive spirometry (2) COPD exacerbation: Code(s): J44.1 - Chronic obstructive pulmonary disease with (acute) exacerbation Status: Acute Assessment and Plan: Presented with hypoxia and significant dyspnea. Wheezing noted on exam. No increased sputum production there do not feel that antibiotic therapy is warranted at this time * Continue scheduled albuterol nebulizers * Symbicort and Spiriva * Continue prednisone taper. * Supplemental O2 as needed * Acapella therapy has been ordered. Appreciate RT eros. (3) Chest pain: Qualifiers: Chest pain type: unspecified Qualified Code(s): R07.9 - Chest pain, unspecified Code(s): R07.9 - Chest pain, unspecified Status: Acute Assessment and Plan: Presented with atypical anterior chest pain that has since resolved. Troponin trend was flat. She is complaining of bilateral mid scapular pain. * Appreciate cardiology consultation. * Planning for CTA of the chest to rule out aortic dissection given atypical chest pain and back pain. Await results. * Nitroglycerin as needed * Outpatient cardiac CTA vs left heart catheterization may be considered as an outpatient, depending on findings. * She will need outpatient cardiology follow-up 1 week following discharge, per cardiology recommendations (4) Leukocytosis: Qualifiers: Leukocytosis type: unspecified Qualified Code(s): D72.829 - Elevated white blood cell count, unspecified Code(s): D72.829 - Elevated white blood cell count, unspecified Status: Acute Assessment and Plan: White count slightly elevated at 13 upon arrival, has declined to 12.4 today with neutrophil predominance. She does not have clinical symptoms to support underlying infectious etiology. Leukocytosis may further increase due to current prednisone therapy. * Trend CBC * Monitor clinically (5) Hypertension: Qualifiers: Hypertension type: unspecified Qualified Code(s): I10 - Essential (primary) hypertension Code(s): I10 - Essential (primary) hypertension Status: Chronic Assessment and Plan: Blood pressure has been elevated above target. Last BP was 186/85. * Metoprolol succinate has been increased to 50 mg daily * IV hydralazine has been ordered p.r.n. for systolic BP >170 * Monitor BP trends (6) Diabetes: Qualifiers: Diabetes mellitus type: type 2 Diabetes mellitus termite control servicer insulin use: with [facility] use Diabetes mellitus complication status: without complication Qualified Code(s): E11.9 - Type 2 diabetes mellitus without complications; Z79.4 - [facility] (current) use of insulin Code(s): E11.9 - Type 2 diabetes mellitus without complications Status: Chronic
--- NOTE | 2020-08-29 14:06 | PM.IMPN ---
Progress Note: A&P Assessment and Plan (1) Acute on chronic respiratory failure with hypoxemia: Code(s): J96.21 - Acute and chronic respiratory failure with hypoxia Status: Acute Assessment and Plan: Chronic respiratory failure related to COPD. She is on chronic 2 L supplemental oxygen, although she has not been using this at home. Acute respiratory failure felt related to COPD exacerbation. ABG showed hypoxemia. CXR demonstrated mild infiltrate versus atelectasis at right lung base. PE less likely given negative D-dimer. Pneumonia less likely given clinical findings. She is maintaining adequate O2 saturations on 2 L per nasal cannula. Continue supplemental O2 with goal saturation 90% or above. Wean to goal. Treatment of COPD exacerbation as described below Incentive spirometry (2) COPD exacerbation: Code(s): J44.1 - Chronic obstructive pulmonary disease with (acute) exacerbation Status: Acute Assessment and Plan: Presented with hypoxia and significant dyspnea. Wheezing noted on exam. No increased sputum production there do not feel that antibiotic therapy is warranted at this time Continue scheduled albuterol nebulizers Symbicort and Spiriva Continue prednisone taper. Supplemental O2 as needed Acapella therapy has been ordered. Appreciate RT eval. (3) Chest pain: Qualifiers: Chest pain type: unspecified Qualified Code(s): R07.9 - Chest pain, unspecified Code(s): R07.9 - Chest pain, unspecified Status: Acute Assessment and Plan: Presented with atypical anterior chest pain that has since resolved. Troponin trend was flat. She is complaining of bilateral mid scapular pain. Appreciate cardiology consultation. Planning for CTA of the chest to rule out aortic dissection given atypical chest pain and back pain. Await results. Nitroglycerin as needed Outpatient cardiac CTA vs left heart catheterization may be considered as an outpatient, depending on findings. She will need outpatient cardiology follow-up 1 week following discharge, per cardiology recommendations (4) Leukocytosis: Qualifiers: Leukocytosis type: unspecified Qualified Code(s): D72.829 - Elevated white blood cell count, unspecified Code(s): D72.829 - Elevated white blood cell count, unspecified Status: Acute Assessment and Plan: White count slightly elevated at 13 upon arrival, has declined to 12.4 today with neutrophil predominance. She does not have clinical symptoms to support underlying infectious etiology. Leukocytosis may further increase due to current prednisone therapy. Trend CBC Monitor clinically (5) Hypertension: Qualifiers: Hypertension type: unspecified Qualified Code(s): I10 - Essential (primary) hypertension Code(s): I10 - Essential (primary) hypertension Status: Chronic Assessment and Plan: Blood pressure has been elevated above target. Last BP was 186/85. Metoprolol succinate has been increased to 50 mg daily IV hydralazine has been ordered p.r.n. for systolic BP >170 Monitor BP trends (6) Diabetes: Qualifiers: Diabetes mellitus type: type 2 Diabetes mellitus intermodal customer service insulin use: with alf use Diabetes mellitus complication status: without complication Qualified Code(s): E11.9 - Type 2 diabetes mellitus without complications; Z79.4 - nursing home (current) use of insulin Code(s): E11.9 - Type 2 diabetes mellitus without complications Status: Chronic Assessment and Plan: Her A1c is >14.0. She appears to have significant insulin resistance and is on very high doses of insulin. Home regimen is 90 units Lantus nightly with 30 units NovoLog t.i.d. unfortunately, she has not been on any of her medications for some time, and blood sugars are very poorly controlled. Blood sugars have been in the 300s. Last glucose was 351. No acidosis. No
[2020-08-29] MEDS: MAGNESIUM OXIDE 400 MG TABLET PO ×2 (14:43→19:56)
[2020-08-29 17:39] LABS: Glucose Point of Care 339 (65-105)
[2020-08-29] MEDS: PRAMIPEXOLE 1 MG TABLET 2 MG PO (19:56)
[2020-08-29] MEDS: ROSUVASTATIN 10 MG TABLET 20 MG PO (19:56)
[2020-08-29] MEDS: traMADol HCL (*CRX) 25 MG TABLET PO (20:12)
[2020-08-29 20:47] LABS: Glucose Point of Care 245 (65-105)
[2020-08-30] VITALS: PULSE 75; O2SAT 95
--- NOTE | 2020-08-30 00:37 | PM.EVENT ---
Event Note Event Note Event Note: Nursing staff called to notify me that the patient has decided to leave AMA. Patient was educated as to the risks of leaving the hospital against medical advice, the patient verbalized understanding of the risks and still is choosing to leave AMA.
--- NOTE | 2020-08-30 00:48 | PC.NURSE ---
Patient notified of risks of leaving AMA. Dr. Castillo notified. Follow up instructions given to patient. Patient signed AMA form. Educated patient since 193 for reason to stay in hospital. At 0030 patient called son and said he needs to come pick her up. Spoke with son and son agrees to come get patient. Patient alert and oriented x 3 at this time.
--- NOTE | 2020-08-30 07:06 | PM.DS ---
DS: Admitting Diagnosis Admitting Diagnosis Admitting Diagnosis: Atypical chest pain DS: Discharge Diagnosis Discharge Diagnosis (1) Acute on chronic respiratory failure with hypoxemia: Code(s): J96.21 - Acute and chronic respiratory failure with hypoxia Status: Acute Assessment and Plan: Chronic respiratory failure related to COPD. She is on chronic 2 L supplemental oxygen, although she has not been using this at home. Acute respiratory failure felt related to COPD exacerbation. ABG showed hypoxemia. CXR demonstrated mild infiltrate versus atelectasis at right lung base. PE less likely given negative D-dimer. Pneumonia less likely given clinical findings. She is maintaining adequate O2 saturations on 2 L per nasal cannula. Continue supplemental O2 with goal saturation 90% or above. Wean to goal. Treatment of COPD exacerbation as described below Incentive spirometry CTA demonstrated scattered pulmonary nodules, which could be postinfectious. Three-month follow-up recommended to exclude metastatic disease. (2) COPD exacerbation: Code(s): J44.1 - Chronic obstructive pulmonary disease with (acute) exacerbation Status: Acute Assessment and Plan: Presented with hypoxia and significant dyspnea. Wheezing noted on exam. No increased sputum production therefore do not feel that antibiotic therapy is warranted at this time Continue scheduled albuterol nebulizers Symbicort and Spiriva Continue prednisone taper. Supplemental O2 as needed Acapella therapy has been ordered. Appreciate RT eros. (3) Chest pain: Qualifiers: Chest pain type: unspecified Qualified Code(s): R07.9 - Chest pain, unspecified Code(s): R07.9 - Chest pain, unspecified Status: Acute Assessment and Plan: Presented with atypical anterior chest pain that has since resolved. Troponin trend was flat. She is complaining of bilateral mid scapular pain. Appreciate cardiology consultation. Planning for CTA of the chest to rule out aortic dissection given atypical chest pain and back pain. CTA negative for aortic aneurysm, dissection or PE. Nitroglycerin as needed Outpatient cardiac CTA vs left heart catheterization may be considered as an outpatient, depending on findings. She will need outpatient cardiology follow-up 1 week following discharge, per cardiology recommendations (4) Leukocytosis: Qualifiers: Leukocytosis type: unspecified Qualified Code(s): D72.829 - Elevated white blood cell count, unspecified Code(s): D72.829 - Elevated white blood cell count, unspecified Status: Acute Assessment and Plan: White count slightly elevated at 13 upon arrival, has declined to 12.4 today with neutrophil predominance. She does not have clinical symptoms to support underlying infectious etiology. Leukocytosis may further increase due to current prednisone therapy. Trend CBC Monitor clinically (5) Hypertension: Qualifiers: Hypertension type: unspecified Qualified Code(s): I10 - Essential (primary) hypertension Code(s): I10 - Essential (primary) hypertension Status: Chronic Assessment and Plan: Blood pressure has been elevated above target. Last BP was 186/85. Metoprolol succinate has been increased to 50 mg daily IV hydralazine has been ordered p.r.n. for systolic BP >170 Monitor BP trends (6) Diabetes: Qualifiers: Diabetes mellitus complication status: without complication Diabetes mellitus intermission coordinator insulin use: with intermission coordinator use Diabetes mellitus type: type 2 Qualified Code(s): E11.9 - Type 2 diabetes mellitus without complications; Z79.4 - care home (current) use of insulin Code(s): E11.9 - Type 2 diabetes mellitus without complications Status: Chronic Assessment and Plan: Her A1c is >14.0. She appears to have significant insulin resistance and is on very high dose
== END 2020-08-30 00:45 | disposition left against medical advice (07) | DRG 190 ==
LOC: ANHED 20:36 → ANHIMU 08-29 00:41
PROVIDERS: Emergency Medicine Emergency Medical Services; Admitting Provider Family Medicine; Emergency Provider Emergency Medicine; Visit Provider Physician Assistant
DX: J44.1 Chronic obstructive pulmonary disease with (acute) exacerbation (principal); J96.21 Acute and chronic respiratory failure with hypoxia; I42.2 Other hypertrophic cardiomyopathy; D72.829 Elevated white blood cell count, unspecified; I12.9 Hypertensive chronic kidney disease with stage 1 through stage 4 chronic kidney disease, or unspecified chronic kidney disease; E11.22 Type 2 diabetes mellitus with diabetic chronic kidney disease; N18.30 Chronic kidney disease, stage 3 unspecified; E78.5 Hyperlipidemia, unspecified; M19.90 Unspecified osteoarthritis, unspecified site; R32 Unspecified urinary incontinence; G25.81 Restless legs syndrome; R91.8 Other nonspecific abnormal finding of lung field; Z91.19 Patient's noncompliance with other medical treatment and regimen; Z99.81 Dependence on supplemental oxygen; F17.200 Nicotine dependence, unspecified, uncomplicated; E66.9 Obesity, unspecified; Z96.641 Presence of right artificial hip joint; Z91.410 Personal history of adult physical and sexual abuse; Z68.30 Body mass index [BMI] 30.0-30.9, adult; Z79.4 Long term (current) use of insulin; Z85.118 Personal history of other malignant neoplasm of bronchus and lung; Z90.711 Acquired absence of uterus with remaining cervical stump; Z90.49 Acquired absence of other specified parts of digestive tract
CPT/HCPCS: 36415; 36600; 71045; 71275; 80048; 80053; 80061; 81001; 82375; 82805; 82948; 83036; 83050; 83605; 83735; 83880; 84484; 85025; 85380; 85610; 85730; 87040; 87077; 87186; 93005; 94640; 94667; 94668; 96361; 96374; 99285; A9270; C9113; J1650; J1815; J1885; J3475; J7030; J7512; Q9967